=== PATIENT | female | born 1930 | race Caucasian/White ===

== ENCOUNTER 2016-12-10 20:34 | Inpatient (IN) | payer MEDICARE, MEDICAID ==
[2016-12-10 21:43] LABS: Hematocrit 30 % (35-47); Hemoglobin 9.6 g/dl (12.0-16.0); Mean Corpuscular HGB Conc 32 g/dl (31-36); Mean Corpuscular Hemoglobin 29 pg (27-31); Mean Corpuscular Volume 90 fL (80-97); Mean Platelet Volume 7 um3 (7.4-10.4); Red Blood Count 3.35 10^6/ul (4.0-5.4); Red Cell Distribution Width 16 % (10.5-15); White Blood Count 6.5 10^3/ul (3.5-10.8)
--- NOTE | 2016-12-10 21:47 | RAD ---
Indication: Confusion. CT of the brain was performed without IV contrast. Comparison is made with previous exam dated December 12, 2014. Ventricular structures are midline. No midline shift is noted. Central and cortical atrophy is noted. There is no evidence of intracranial mass or hemorrhage. No other high or low density lesion is identified. There is enlargement of the lateral ventricles bilaterally and symmetrically. This has not changed since previous exam. Periventricular lucency consistent with chronic ischemic white matter changes noted. Mucous retention cyst is noted in the left maxillary sinus. IMPRESSION: There is no evidence of intracranial mass or hemorrhage. Ventriculomegaly with chronic ischemic White matter change is noted.
--- NOTE | 2016-12-10 21:55 | RAD ---
Indication: Confusion. Single view of the chest demonstrates no mediastinal shift. Cardiomegaly is noted. Lung davidson are clear. Compared to previous exam of January 05, 2016 no significant change is noted. IMPRESSION: CARDIOMEGALY. NO ACTIVE CARDIOPULMONARY DISEASE IS NOTED.
[2016-12-10 22:11] LABS: Albumin 3.2 g/dL (3.2-5.2); BUN/Creatinine Ratio 19.6 (8-20); Calcium 9.9 mg/dL (8.6-10.3); EGFR African American 70.4 (>60); EGFR Non-African American 54.7 (>60); Globulin 4.1 g/dL (2-4); Magnesium 2.1 mg/dL (1.9-2.7); Potassium 3.7 mmol/L (3.5-5.0); Total Bilirubin 0.2 mg/dL (0.2-1.0); Total Protein 7.3 g/dL (6.4-8.9)
[2016-12-10 22:12] LABS: Troponin I 0.07 ng/mL (<0.04); Urine Bacteria 1+ (Absent); Urine Bilirubin Negative (Negative); Urine Glucose Negative (Negative); Urine Nitrite Negative (Negative)
[2016-12-10 22:32] LABS: TSH (Thyroid Stimulating Horm) 2.68 mcIU/mL (0.34-5.60)
[2016-12-10] MEDS ORDERED: Labetalol IV* 5 MG/ML 20 ML VIAL IV PUSH ONE (23:00)
[2016-12-10] MEDS ORDERED: hydrALAZINE IV* 20 MG/ML VIAL IV ONE (23:14)
--- NOTE | 2016-12-10 23:38 | HP ---
H&P (Free Text) History and Physical: PCP: Solo Yanez DO Date/Time of Evaluation: 12/10/2015 7747 CC: altered mental status HPI: Mrs Jordan is an 86YO female resident of [facility] who is normally oriented x4, but was found today by [facility] staff to be slow to respond and confused. She is unable to participate in a history. Therefore this information is obtained from her son & the available medical record. There is no report of focal W/N/T, facial asymmetry, slurred speech, choking with eating/drinking, known injury/fall, chest pain, SOB, N/V, F/C/D, or other issues. Her son relates that she has frequent UTIs and often becomes confused like this with them. Mrs Jordan opens her eyes to voice and seems reliable for current status questions. She does report lower abdominal pain radiating to her back, but denies B/U/F of urine. Work up is notable for a UA with UTI which is likely the cause. However, her systolic pressures have been running >200 making hypertensive urgency a possibility as well. PMedHx cerebral palsy seizure disorder CVA HTN COPD depression bone on bone OA R hip GERD Allergies Morphine Allergy (Mild, Verified 01/04/16 22:28) Rash Iodine Allergy (Unknown, Verified 01/04/16 22:28) Unknown Reaction Details Cefuroxime [From Ceftin] Allergy (Verified 01/04/16 22:28) Rash Ciprofloxacin Allergy (Verified 01/04/16 22:28) Unknown Reaction Details contrast dye iv Allergy (Severe, Uncoded 01/04/16 22:28) anaphylactic per pt's son 20 yrs ago Ambulatory Orders amLODIPine TAB* [Norvasc TAB*] 7.5 mg PO DAILY 07/10/13 Acetaminophen TAB* [Tylenol TAB*] 650 mg PO Q4H PRN 12/12/14 Diazepam (Anticonvulsant) [Diazepam] 5 mg DE Q5D PRN 12/12/14 Polyethylene Glycol 3350* [Miralax*] 17 gm PO DAILY 12/12/14 Sennosides-Docusate Sodium [Senna/Docusate Sodium] 2 tab PO BID 12/12/14 lamoTRIgine TAB(*) [Lamictal TAB(*)] 250 mg PO QAM 12/12/14 Aspirin Low Dose CHEW TAB* [Aspirin Low Dose TAB*] 81 mg PO DAILY 01/22/15 Ascorbic Acid TAB* [Vitamin C TAB*] 500 mg PO DAILY 12/11/16 Cholecalciferol [Vitamin D3] 50,000 unit PO WEEKLY 12/11/16 Cranberry (Vaccinium Macrocarp [Cranberry] 425 mg PO DAILY 12/11/16 Ferrous Sulfate TAB* 325 mg PO DAILY 12/11/16 Furosemide TAB* [Lasix TAB*] 20 mg PO DAILY 12/11/16 Omeprazole CAP* [Prilosec CAP* 20 MG] 40 mg PO DAILY 12/11/16 Phenytoin CAP(*) [Dilantin CAP(*)] 300 mg PO BEDTIME 12/11/16 lamoTRIgine TAB(*) [LaMICtal TAB(*)] 500 mg PO BEDTIME 12/11/16 traMADol TAB* [Ultram*] 50 mg PO BID 12/11/16 PSurgHx R MOLINA SocHx: no tobacco, alcohol, or recreational drug HX; , resides at [facility]; DNR/I code status FamHx: reviewed, non-contributory ROS: as above, otherwise reviewed and all were negative Constitutional: NAD, normally developed, obese elderly white female vitals: Vital Signs Temp 36.8 C 12/10/16 20:43 Pulse 74 12/10/16 23:49 Resp 18 12/10/16 23:49 BP 191/57 12/10/16 23:49 Pulse Ox 98 12/10/16 23:49 Intake & Output 12/10/16 12/10/16 12/11/16 11:59 23:59 11:59 Weight 180 lb HEENM: atraumatic; sclera/conjunctiva: non-icteric/clear; hearing: clinically mildly decreased; oropharynx: clear, mucosa moist Neck: soft tissue: non-tender; thyroid: normal Pulmonary: clear to auscultation bilaterally, good aeration, no accessory muscle use CV: RR/RR, normal S1S2, no carotid bruit, no jugular venous distention, 2+ B DP/ PT, no edema Abdominal: soft, non-distended, mildly tender in lower abdomen worst in hypogastrum, no rebound/guarding/rigidity, normoactive bowel sounds, no hepatosplenomegaly or masses, no costovertebral angle tenderness Musculoskeletal: general: grossly intact; gait: non-ambulatory at baseline Integumental: stage 1-2 L>R gluteal decubiti, no drainage, malodor, induration; otherwise normal appearance and texture Psychiatric orientation: AA&O to PP, loosely to situation affect: fatigued mood: acquiescent eye contact: poor content: minimal, unreliable responses: slowed insight: poor Testing: Lab Results 12/10/16 12/10/16 12/10/16 Range/Units 21:20 21:20 21:20 WBC 6.5 (3.5-10.8) 10^3/ul RBC 3.35 L (4.0-5.4) 10^6/ul Hgb 9.6 L (12.0-16.0) g/dl Hct 30 L (35-47) % MCV 90 (80-97) fL MCH 29 (27-31) pg MCHC 32 (31-36) g/dl RDW 16 H (10.5-15) % Plt Count 267 (150-450) 10^3/ul MPV 7 L (7.4-10.4) um3 Neut % (Auto) 73.2 (38-83) % Lymph % (Auto) 12.8 L (25-47) % Bond % (Auto) 11.3 H (1-9) % Eos % (Auto) 2.0 (0-6) % Baso % (Auto) 0.7 (0-2) % Absolute Neuts (auto) 4.8 (1.5-7.7) 10^3/ul Absolute Lymphs (auto) 0.8 L (1.0-4.8) 10^3/ul Absolute Monos (auto) 0.7 (0-0.8) 10^3/ul Absolute Eos (auto) 0.1 (0-0.6) 10^3/ul Absolute Basos (auto) 0 (0-0.2) 10^3/ul Absolute Nucleated RBC 0 10^3/ul Nucleated RBC % 0 INR (Anticoag Therapy) 0.97 (0.89-1.11) Sodium (133-145) mmol/L Potassium (3.5-5.0) mmol/L Chloride (101-111) mmol/L Carbon Dioxide (22-32) mmol/L Anion Gap (2-11) mmol/L BUN (6-24) mg/dL Creatinine (0.51-0.95) mg/dL Est GFR ( Amer) (>60) Est GFR (Non-Af Amer) (>60) BUN/Creatinine Ratio (8-20) Glucose (70-100) mg/dL Lactic Acid (0.5-2.0) mmol/L Calcium (8.6-10.3) mg/dL Magnesium (1.9-2.7) mg/dL Total Bilirubin (0.2-1.0) mg/dL AST (13-39) U/L ALT (7-52) U/L Alkaline Phosphatase (34-104) U/L Troponin I (<0.04) ng/mL Total Protein (6.4-8.9) g/dL Albumin (3.2-5.2) g/dL Globulin (2-4) g/dL Albumin/Globulin Ratio (1-3) TSH (0.34-5.60) mcIU/mL Urine Color Yeimi Urine Appearance Cloudy Urine pH 7.0 (5-9) Ur Specific [place] 1.013 (1.010-1.030) Urine Protein 2+(100 mg/dl) H (Negative) Urine Ketones Negative (Negative) Urine Blood 1+ H (Negative) Urine Nitrate Negative (Negative) Urine Bilirubin Negative (Negative) Urine Urobilinogen Negative (Negative) Ur Leukocyte Esterase 3+ H (Negative) Urine WBC (Auto) 3+(>20/hpf) H (Absent) Urine RBC (Auto) 2+(6-10/hpf) H (Absent) Ur Squamous Epith Cells Present H (Absent) Urine Bacteria 1+ H (Absent) Urine Glucose Negative (Negative) 12/10/16 12/10/16 Range/Units 21:20 21:20 WBC (3.5-10.8) 10^3/ul RBC (4.0-5.4) 10^6/ul Hgb (12.0-16.0) g/dl Hct (35-47) % MCV (80-97) fL MCH (27-31) pg MCHC (31-36) g/dl RDW (10.5-15) % Plt Count (150-450) 10^3/ul MPV (7.4-10.4) um3 Neut % (Auto) (38-83) % Lymph % (Auto) (25-47) % Bond % (Auto) (1-9) % Eos % (Auto) (0-6) % Baso % (Auto) (0-2) % Absolute Neuts (auto) (1.5-7.7) 10^3/ul Absolute Lymphs (auto) (1.0-4.8) 10^3/ul Absolute Monos (auto) (0-0.8) 10^3/ul Absolute Eos (auto) (0-0.6) 10^3/ul Absolute Basos (auto) (0-0.2) 10^3/ul Absolute Nucleated RBC 10^3/ul Nucleated RBC % INR (Anticoag Therapy) (0.89-1.11) Sodium 136 (133-145) mmol/L Potassium 3.7 (3.5-5.0) mmol/L Chloride 104 (101-111) mmol/L Carbon Dioxide 26 (22-32) mmol/L Anion Gap 6 (2-11) mmol/L BUN 19 (6-24) mg/dL Creatinine 0.97 H (0.51-0.95) mg/dL Est GFR ( Amer) 70.4 (>60) Est GFR (Non-Af Amer) 54.7 (>60) BUN/Creatinine Ratio 19.6 (8-20) Glucose 133 H (70-100) mg/dL Lactic Acid 0.7 (0.5-2.0) mmol/L Calcium 9.9 (8.6-10.3) mg/dL Magnesium 2.1 (1.9-2.7) mg/dL Total Bilirubin 0.20 (0.2-1.0) mg/dL AST 10 L (13-39) U/L ALT 6 L (7-52) U/L Alkaline Phosphatase 141 H (34-104) U/L Troponin I 0.07 H* (<0.04) ng/mL Total Protein 7.3 (6.4-8.9) g/dL Albumin 3.2 (3.2-5.2) g/dL Globulin 4.1 H (2-4) g/dL Albumin/Globulin Ratio 0.8 L (1-3) TSH 2.68 (0.34-5.60) mcIU/mL Urine Color Urine Appearance Urine pH (5-9) Ur Specific [place] (1.010-1.030) Urine Protein (Negative) Urine Ketones (Negative) Urine Blood (Negative) Urine Nitrate (Negative) Urine Bilirubin (Negative) Urine Urobilinogen (Negative) Ur Leukocyte Esterase (Negative) Urine WBC (Auto) (Absent) Urine RBC (Auto) (Absent) Ur Squamous Epith Cells (Absent) Urine Bacteria (Absent) Urine Glucose (Negative) ECG, personally reviewed: NSR rate 68, ST depression in V4-6, I, & II similar to 01/2016 CXR, personally reviewed: IMPRESSION: CARDIOMEGALY. NO ACTIVE CARDIOPULMONARY DISEASE IS NOTED. CT brain WO, personally reviewed: IMPRESSION: There is no evidence of intracranial mass or hemorrhage. Ventriculomegaly with chronic ischemic White matter change is noted. Impression: 86F presenting with AMS likely 2nd UTI, doubt hypertensive urgency DIAGNOSIS & PLAN Primary UTI : piperacillin/tazobactam IV 2nd allergies to quinolones & cephalosporins, last urine CX shows good sensitivity to it : IVFs : blood & urine CXs : pain control : supportive care HTN, uncontrolled : IV hydralazine PRN : goal systolic ~180 : neurochecks AMS : suspect 2nd UTI, doubt hypertensive urgency : as above elevated troponin : baseline, no further work up Secondary seizure disorder : continue lamotrigine, & phenytoin : D/C tramadol as it is known to lower the seizure threshold HTN : continue amlodipine : IV hydralazine PRN : hold furosemide COPD : albuterol PRN GERD : continue omeprazole Admission Rational: observation for AMS, UTI, & uncontrolled HTN DVTp: SCDs & heparin SQ Code Status: DNR/I HCP: son
--- NOTE | 2016-12-10 23:46 | ED ---
Mary Trujillo Michael, scribed for Diana Robertson MD on 12/10/16 at 2109 . Altered Mental Status - HPI Summary HPI Summary: 86 y/o female was BIBA to the ED presenting as a level 5 caveat due to an AMS starting today. The pt was found at the [facility] less responsive and not verbalizing more than normal. She has an elevated blood pressure of 229/109. She has a hx of sz. - History Of Current Complaint Chief Complaint: EDSeizure Stated Complaint: AMS Time Seen by Provider: 12/10/16 20:38 Hx Obtained From: EMS, Medical Records Hx From Patient Unobtainable Due To: Altered Mental Status Onset/Duration: Still Present Timing: Constant Severity Initially: Moderate Severity Currently: Moderate Character: Responsiveness Associated Signs And Symptoms: Negative: Negative - elevated blood pressure. AMS. - Allergies/Home Medications Allergies/Adverse Reactions: Allergies Allergy/AdvReac Type Severity Reaction Status Date / Time Morphine Allergy Mild Rash Verified 01/04/16 22:28 Iodine Allergy Unknown Unknown Verified 01/04/16 22:28 Reaction Details Cefuroxime [From Ceftin] Allergy Rash Verified 01/04/16 22:28 Ciprofloxacin Allergy Unknown Verified 01/04/16 22:28 Reaction Details contrast dye iv Allergy Severe anaphylacti Uncoded 01/04/16 22:28 c PMH/Surg Hx/FS Hx/Imm Hx Endocrine/Hematology History: Reports: Hx Anemia Denies: Hx Anticoagulant Therapy, Hx Blood Disorders, Hx Blood Transfusions, Hx Bone Marrow Disease, Hx Diabetes, Hx Systemic Lupus Erythematosus, Hx Sickle Cell Disease, Hx Thyroid Disease, Hx Unexplained Bleeding, Other Endocrine/ Hematological Disorders Cardiovascular History: Reports: Hx Hypertension Denies: Hx Aneurysm, Hx Angina, Hx Angioplasty, Hx Auto Implanted Cardiovert Defib, Hx Cardiac Arrest, Hx Cardiomegaly, Hx Congenital Heart Disease, Hx Congestive Heart Failure, Hx Coronary Artery Disease, Hx Deep Vein Thrombosis, Hx Embolism, Hx Hypercholesterolemia, Hx Hypotension, Hx Pacemaker/ICD, Hx Peripheral Vascular Disease, Hx Rheumatic Fever, Hx Syncope, Hx Valvular Heart Disease, Other Cardiovascular Problems/Disorders Respiratory History: Reports: Hx Chronic Obstructive Pulmonary Disease (COPD) Denies: Hx Asthma, Hx Chronic Bronchitis, Hx Cystic Fibrosis, Hx Lung Cancer , Hx Pleural Effusion, Hx Pneumonia, Hx Pulmonary Edema, Hx Pulmonary Embolism, Hx Seasonal Allergies, Hx Sleep Apnea, Other Respiratory Problems/Disorders GI History: Reports: Hx Obstructive Bowel, Other GI Disorders - gastritis Denies: Hx Cirrhosis, Hx Crohn's Disease, Hx Diverticulosis, Hx Gall Bladder Disease, Hx Gastroesophageal Reflux Disease, Hx Gastrointestinal Bleed, Hx Hiatal Hernia, Hx Irritable Bowel, Hx Jaundice, Hx Ileostomy, Hx Pyloric Stenosis, Hx Ulcer History: Reports: Other Problems/Disorders - chr urine retention, [place] Denies: Hx Acute Renal Failure, Hx Benign Prostatic Hyperplasia, Hx Chronic Renal Failure, Hx Dialysis, Hx Kidney Infection, Hx Kidney Stones Musculoskeletal History: Reports: Hx Arthritis, Hx Back Problems - chr neck pain , Hx Osteoporosis, Other Musculoskeletal History - CEREBRAL PALSY Denies: Hx Bursitis, Hx Congenital Bone Abnormalities, Hx Fibromyalgia, Hx Gout, Hx Orthopedic Injury, Hx Scoliosis, Hx Tendonitis Sensory History: Reports: Hx Cataracts, Hx Contacts or Glasses, Hx Hearing Problem - [place] Denies: Hx Eye Injury, Hx Eye Prosthesis, Hx Glaucoma, Hx Legally Blind, Hx Macular Degeneration, Hx Vision Problem, Hx Deafness, Hx Hearing Aid, Other Sensory Impairments Opthamlomology History: Reports: Hx Cataracts, Hx Contacts or Glasses Denies: Hx Eye Injury, Hx Eye Prosthesis, Hx Glaucoma, Hx Legally Blind, Hx Macular Degeneration, Hx Vision Problem, Other Sensory Impairments Neurological History: Reports: Hx Seizures, Other Neuro Impairments/Disorders - CEREBAL PALSY WITH LEFT HEMIPLEGIA Denies: Hx Dementia, Hx Developmental Delay, Hx Headaches, Hx Migraine, Hx Nerve Disease, Hx Spinal Cord Injury, Hx Transient Ischemic Attacks (TIA) Psychiatric History: Reports: Hx Depression Denies: Hx Anxiety, Hx Attention Deficit Hyperactivity Disorder, Hx Eating Disorder, Hx Panic Disorder, Hx Post Traumatic Stress Disorder, Hx Inpatient Treatment, Hx Community Mental Health Tx, Hx Schizophrenia, Hx Bipolar Disorder , Hx Suicide Attempt, Hx of Violent Episodes Against Others, Hx Substance Abuse , Other Psychiatric Issues/Disorders - Cancer History Hx Chemotherapy: No Hx Radiation Therapy: No Hx Palliative Cancer Treatment: No - Surgical History Surgery Procedure, Year, and Place: X2 FOR SBO, COLON RESECTION, left hip hemiarthroplasty, eyes, knee surgery as a child Hx Anesthesia Reactions: No Infectious Disease History: No Infectious Disease History: Denies: Hx Clostridium Difficile, Hx Hepatitis, Hx Human Immunodeficiency Virus (HIV), Hx Shingles, Hx Tuberculosis, Traveled Outside the [place] in Last 30 Days - Family History Known Family History: Positive: Unknown Family History: unknown due to level 5 caveat - Social History Occupation: Retired Lives: [facility] Alcohol Use: None Substance Use Type: Reports: None Smoking Status (MU): Never Smoked Tobacco Have You Smoked in the Last Year: No Review of Systems - ROS Summary Review of Systems Summary: Limited due to level 5 caveat Negative: Fever Positive: Other - incrased blood pressure Neurological: Other - AMS All Other Systems Reviewed And Are Negative: No Physical Exam - Summary Physical Exam Summary: Level 5 caveat Triage Information Reviewed: Yes Vital Signs On Initial Exam: Initial Vitals Temp Pulse Resp BP Pulse Ox 98.2 F 67 18 229/109 97 12/10/16 20:43 12/10/16 20:43 12/10/16 20:43 12/10/16 20:43 12/10/16 20:43 Vital Signs Reviewed: Yes Appearance: Positive: Well-Appearing, No Pain Distress Skin: Positive: Warm, Skin Color Reflects Adequate Perfusion, Dry Eyes: Positive: EOMI, JESUS Neck: Positive: Supple, Nontender Respiratory/Lung Sounds: Positive: Clear to Auscultation, Breath Sounds Present. Negative: Rales, Rhonchi, Wheezes Cardiovascular: Positive: RRR, Other - no gallop. Negative: Murmur, Rub Abdomen Description: Positive: Nontender, Soft, Other: - no rebound. Negative: Distended, Guarding Musculoskeletal: Positive: Other - feet are atrophied. LUE contracted. moves right arm. Neurological: Positive: Other - occasionally follows commands Psychiatric: Positive: Affect/Mood Appropriate Diagnostics - Vital Signs Vital Signs Temp Pulse Resp BP Pulse Ox 12/10/16 20:43 98.2 F 67 18 229/109 97 - Laboratory Lab Results: Lab Results 12/10/16 12/10/16 12/10/16 Range/Units 21:20 21:20 21:20 WBC 6.5 (3.5-10.8) 10^3/ul RBC 3.35 L (4.0-5.4) 10^6/ul Hgb 9.6 L (12.0-16.0) g/dl Hct 30 L (35-47) % MCV 90 (80-97) fL MCH 29 (27-31) pg MCHC 32 (31-36) g/dl RDW 16 H (10.5-15) % Plt Count 267 (150-450) 10^3/ul MPV 7 L (7.4-10.4) um3 Neut % (Auto) 73.2 (38-83) % Lymph % (Auto) 12.8 L (25-47) % Lares % (Auto) 11.3 H (1-9) % Eos % (Auto) 2.0 (0-6) % Baso % (Auto) 0.7 (0-2) % Absolute Neuts (auto) 4.8 (1.5-7.7) 10^3/ul Absolute Lymphs (auto) 0.8 L (1.0-4.8) 10^3/ul Absolute Monos (auto) 0.7 (0-0.8) 10^3/ul Absolute Eos (auto) 0.1 (0-0.6) 10^3/ul Absolute Basos (auto) 0 (0-0.2) 10^3/ul Absolute Nucleated RBC 0 10^3/ul Nucleated RBC % 0 INR (Anticoag Therapy) 0.97 (0.89-1.11) Sodium (133-145) mmol/L Potassium (3.5-5.0) mmol/L Chloride (101-111) mmol/L Carbon Dioxide (22-32) mmol/L Anion Gap (2-11) mmol/L BUN (6-24) mg/dL Creatinine (0.51-0.95) mg/dL Est GFR ( Amer) (>60) Est GFR (Non-Af Amer) (>60) BUN/Creatinine Ratio (8-20) Glucose (70-100) mg/dL Lactic Acid (0.5-2.0) mmol/L Calcium (8.6-10.3) mg/dL Magnesium (1.9-2.7) mg/dL Total Bilirubin (0.2-1.0) mg/dL AST (13-39) U/L ALT (7-52) U/L Alkaline Phosphatase (34-104) U/L Troponin I (<0.04) ng/mL Total Protein (6.4-8.9) g/dL Albumin (3.2-5.2) g/dL Globulin (2-4) g/dL Albumin/Globulin Ratio (1-3) TSH (0.34-5.60) mcIU/mL Urine Color Yeimi Urine Appearance Cloudy Urine pH 7.0 (5-9) Ur Specific [place] 1.013 (1.010-1.030) Urine Protein 2+(100 mg/dl) H (Negative) Urine Ketones Negative (Negative) Urine Blood 1+ H (Negative) Urine Nitrate Negative (Negative) Urine Bilirubin Negative (Negative) Urine Urobilinogen Negative (Negative) Ur Leukocyte Esterase 3+ H (Negative) Urine WBC (Auto) 3+(>20/hpf) H (Absent) Urine RBC (Auto) 2+(6-10/hpf) H (Absent) Ur Squamous Epith Cells Present H (Absent) Urine Bacteria 1+ H (Absent) Urine Glucose Negative (Negative) 12/10/16 12/10/16 Range/Units 21:20 21:20 WBC (3.5-10.8) 10^3/ul RBC (4.0-5.4) 10^6/ul Hgb (12.0-16.0) g/dl Hct (35-47) % MCV (80-97) fL MCH (27-31) pg MCHC (31-36) g/dl RDW (10.5-15) % Plt Count (150-450) 10^3/ul MPV (7.4-10.4) um3 Neut % (Auto) (38-83) % Lymph % (Auto) (25-47) % Lares % (Auto) (1-9) % Eos % (Auto) (0-6) % Baso % (Auto) (0-2) % Absolute Neuts (auto) (1.5-7.7) 10^3/ul Absolute Lymphs (auto) (1.0-4.8) 10^3/ul Absolute Monos (auto) (0-0.8) 10^3/ul Absolute Eos (auto) (0-0.6) 10^3/ul Absolute Basos (auto) (0-0.2) 10^3/ul Absolute Nucleated RBC 10^3/ul Nucleated RBC % INR (Anticoag Therapy) (0.89-1.11) Sodium 136 (133-145) mmol/L Potassium 3.7 (3.5-5.0) mmol/L Chloride 104 (101-111) mmol/L Carbon Dioxide 26 (22-32) mmol/L Anion Gap 6 (2-11) mmol/L BUN 19 (6-24) mg/dL Creatinine 0.97 H (0.51-0.95) mg/dL Est GFR ( Amer) 70.4 (>60) Est GFR (Non-Af Amer) 54.7 (>60) BUN/Creatinine Ratio 19.6 (8-20) Glucose 133 H (70-100) mg/dL Lactic Acid 0.7 (0.5-2.0) mmol/L Calcium 9.9 (8.6-10.3) mg/dL Magnesium 2.1 (1.9-2.7) mg/dL Total Bilirubin 0.20 (0.2-1.0) mg/dL AST 10 L (13-39) U/L ALT 6 L (7-52) U/L Alkaline Phosphatase 141 H (34-104) U/L Troponin I 0.07 H* (<0.04) ng/mL Total Protein 7.3 (6.4-8.9) g/dL Albumin 3.2 (3.2-5.2) g/dL Globulin 4.1 H (2-4) g/dL Albumin/Globulin Ratio 0.8 L (1-3) TSH 2.68 (0.34-5.60) mcIU/mL Urine Color Urine Appearance Urine pH (5-9) Ur Specific [place] (1.010-1.030) Urine Protein (Negative) Urine Ketones (Negative) Urine Blood (Negative) Urine Nitrate (Negative) Urine Bilirubin (Negative) Urine Urobilinogen (Negative) Ur Leukocyte Esterase (Negative) Urine WBC (Auto) (Absent) Urine RBC (Auto) (Absent) Ur Squamous Epith Cells (Absent) Urine Bacteria (Absent) Urine Glucose (Negative) Result Diagrams: 12/10/16 21:20 12/10/16 21:20 Lab Statement: Any lab studies that have been ordered have been reviewed, and results considered in the medical decision making process. - Radiology CXR Xray Interpretation: No Acute Changes Radiology Interpretation Completed By: Radiologist - CT Brain CT CT Interpretation: Positive (See Comments) - There is no evidence of intracranial mass or hemorrhage. Ventriculomegaly with chronic ischemic White matter change is noted. CT Interpretation Completed By: Radiologist - EKG EK EKG Rhythm: Sinus Rhythm EKG Interpretation: LVH with repol EKG Comparison: No Significant Change - to EKG from 01/04/16 Altered Mental Statu Course/Dx - Course Course Of Treatment: 86 y/o pt was BIBA to the ED for AMS and is a level 5 caveat. She has a Trop of 0.07, nml CXR, and Brain CT showed actue white matter changes. After reevaluation the pt is slightly more alert, she has poor urine, and bed sores on her buttocks. Dr. Schulz was consulted at 2257 and he accepts the pt as an admission. possible causes of her ams are hypertensive urgency, uti, post ictal confusion - Diagnoses Discharge Diagnoses: UTI (urinary tract infection), Hypertension, Altered mental state Discharge - Discharge Plan Condition: Stable Disposition: HOME Discharge Disposition Comment: Dr. Schulz accepts the pt as an admission Referrals: Abilio Yanez DO, DO [Primary Care Provider] - The documentation as recorded by the Mary boyle Michael accurately reflects the service I personally performed and the decisions made by me, Diana Robertson MD.
[2016-12-11] MEDS ORDERED: HYDROmorphone INJ* 1 MG/ML CARPUJECT SYRINGE ONE (00:44)
[2016-12-11] MEDS: HYDROmorphone INJ* 1 MG/ML CARPUJECT SYRINGE IV PRN ×5 (00:46→21:54)
[2016-12-11] MEDS ORDERED: Melatonin (NF) 3 MG TAB PO PRN (01:08)
[2016-12-11] MEDS ORDERED: Ondansetron INJ* 2 MG/ML VIAL IV PRN (01:08)
[2016-12-11] MEDS ORDERED: Albuterol 2.5 MG/3 ML NEB.SOL* (0.083%) INH PRN (01:08)
[2016-12-11] MEDS ORDERED: NS 0.9% 1000 ML* 1,000 ML IV SCH (01:15)
[2016-12-11] MEDS ORDERED: Piperac/Tazob 3.375 gm in NS* 3.375 GM/100 ML BAG IVPB ONE (01:30)
[2016-12-11] MEDS: Omeprazole CAP* 20 MG PO SCH (05:25)
[2016-12-11] MEDS: Piperac/Tazob 3.375 gm in NS* 3.375 GM/100 ML BAG IVPB SCH ×3 (05:27→21:56)
[2016-12-11 06:33] LABS: Hematocrit 30 % (35-47); Hemoglobin 9.3 g/dl (12.0-16.0); Mean Corpuscular HGB Conc 31 g/dl (31-36); Mean Corpuscular Hemoglobin 28 pg (27-31); Mean Corpuscular Volume 91 fL (80-97); Mean Platelet Volume 7 um3 (7.4-10.4); Red Blood Count 3.26 10^6/ul (4.0-5.4); Red Cell Distribution Width 16 % (10.5-15)
[2016-12-11 07:04] LABS: BUN/Creatinine Ratio 24.3 (8-20); Blood Urea Nitrogen 18 mg/dL (6-24); CO2 Carbon Dioxide 22 mmol/L (22-32); Calcium 9.1 mg/dL (8.6-10.3); Chloride 105 mmol/L (101-111); EGFR African American 96.2 (>60); EGFR Non-African American 74.8 (>60); Glucose 100 mg/dL (70-100); Sodium 136 mmol/L (133-145)
[2016-12-11] MEDS: Polyethylene Glycol 3350* 17 GM PACKET PO SCH (07:42)
[2016-12-11] MEDS: Senna TAB PO SCH ×2 (07:42→21:44)
[2016-12-11] MEDS: amLODIPine TAB* 5 MG PO SCH (07:55)
[2016-12-11] MEDS: Aspirin Low Dose CHEW TAB* 81 MG PO SCH (07:55)
[2016-12-11] MEDS: Acetaminophen TAB* 325 MG PO PRN ×2 (07:56→14:32)
[2016-12-11] MEDS: lamoTRIgine TAB(*) 100 MG PO SCH (07:56)
[2016-12-11] MEDS ORDERED: Docusate CAP* 100 MG PO SCH ×2 (09:00)
--- NOTE | 2016-12-11 16:18 | PN ---
Subjective Date of Service: 12/11/16 Interval History: Pt is feeling ok except for severe pain in her left hip and femur. She denies any SOB. Objective Active Medications: Acetaminophen (Tylenol Tab*) 650 mg PO Q6H PRN PRN Reason: FEVER/PAIN Last Admin: 12/11/16 14:32 Dose: 650 mg Albuterol (Ventolin 2.5 Mg/3 Ml Neb.María*) 2.5 mg INH Q2H PRN PRN Reason: SOB/WHEEZING Amlodipine Besylate (Norvasc Tab*) 7.5 mg PO DAILY [facility] Last Admin: 12/11/16 07:55 Dose: 7.5 mg Aspirin (Aspirin Low Dose Tab*) 81 mg PO DAILY [facility] Last Admin: 12/11/16 07:55 Dose: 81 mg Heparin Sodium (Porcine) (Heparin Vial(*)) 5,000 units SUBCUT Q8HR [facility] Hydromorphone HCl (Dilaudid Iv*) 0.5 mg IV Q2H PRN PRN Reason: PAIN Last Admin: 12/11/16 07:55 Dose: 0.5 mg Piperacillin Sod/Tazobactam Sod (Zosyn 3.375 Gm In Ns Premix*) 3.375 gm in 100 mls @ 25 mls/hr IVPB Q8H [facility] Last Admin: 12/11/16 14:32 Dose: 25 mls/hr Lamotrigine (Lamictal Tab(*)) 250 mg PO QAM [facility] Last Admin: 12/11/16 07:56 Dose: 250 mg Lamotrigine (Lamictal Tab(*)) 500 mg PO BEDTIME [facility] Losartan Potassium (Cozaar Tab*) 25 mg PO DAILY [facility] Omeprazole (Prilosec Cap*) 20 mg PO DAILY@0600 [facility] Last Admin: 12/11/16 05:25 Dose: 20 mg Ondansetron HCl (Zofran Inj*) 4 mg IV Q6H PRN PRN Reason: NAUSEA Phenytoin Sodium (Dilantin Cap(*)) 300 mg PO BEDTIME [facility] Polyethylene Glycol/Electrolytes (Miralax*) 17 gm PO DAILY [facility] Last Admin: 12/11/16 07:42 Dose: Not Given Senna (Senokot Tab*) 2 tab PO BID [facility] Last Admin: 12/11/16 07:42 Dose: Not Given Vital Signs 12/10/16 12/11/16 12/11/16 23:49 00:46 01:51 Temperature 99.4 F Pulse Rate 74 67 Respiratory 18 18 16 Rate Blood Pressure 191/57 184/50 (mmHg) O2 Sat by Pulse 98 97 Oximetry 12/11/16 12/11/16 12/11/16 02:31 03:49 07:25 Temperature 99.4 F 97.5 F 97.9 F Pulse Rate 67 73 67 Respiratory 16 16 16 Rate Blood Pressure 184/50 179/54 188/47 (mmHg) O2 Sat by Pulse 97 98 98 Oximetry 12/11/16 12/11/16 12/11/16 07:55 08:00 08:55 Temperature Pulse Rate Respiratory 20 15 15 Rate Blood Pressure (mmHg) O2 Sat by Pulse Oximetry 12/11/16 12/11/16 12/11/16 09:17 09:46 11:40 Temperature 97.9 F Pulse Rate 63 60 Respiratory 15 18 Rate Blood Pressure 126/29 158/50 (mmHg) O2 Sat by Pulse 94 98 Oximetry 12/11/16 12/11/16 14:55 15:54 Temperature 98.4 F Pulse Rate 64 Respiratory 15 17 Rate Blood Pressure 186/53 (mmHg) O2 Sat by Pulse 99 Oximetry Oxygen Devices in Use Now: None Appearance: Elderly female sitting up in bed, NAD Eyes: No Scleral Icterus Ears/Nose/Mouth/Throat: Mucous Membranes Moist Respiratory: Symmetrical Chest Expansion and Respiratory Effort, Clear to Auscultation Cardiovascular: NL Sounds; No Murmurs; No JVD, RRR, No Edema Abdominal: NL Sounds; No Tenderness; No Distention Extremities: No Clubbing, Cyanosis Skin: No Rash or Ulcers, No Nodules or Sclerosis Neurological: - - Oriented to month, hospital and where she lives. Did not know the year. Result Diagrams: 12/11/16 05:43 12/11/16 05:43 Additional Lab and Data: Lab Results 12/10/16 12/10/16 12/10/16 Range/Units 21:20 21:20 21:20 WBC 6.5 (3.5-10.8) 10^3/ul RBC 3.35 L (4.0-5.4) 10^6/ul Hgb 9.6 L (12.0-16.0) g/dl Hct 30 L (35-47) % MCV 90 (80-97) fL MCH 29 (27-31) pg MCHC 32 (31-36) g/dl RDW 16 H (10.5-15) % Plt Count 267 (150-450) 10^3/ul MPV 7 L (7.4-10.4) um3 Neut % (Auto) 73.2 (38-83) % Lymph % (Auto) 12.8 L (25-47) % Lane % (Auto) 11.3 H (1-9) % Eos % (Auto) 2.0 (0-6) % Baso % (Auto) 0.7 (0-2) % Absolute Neuts (auto) 4.8 (1.5-7.7) 10^3/ul Absolute Lymphs (auto) 0.8 L (1.0-4.8) 10^3/ul Absolute Monos (auto) 0.7 (0-0.8) 10^3/ul Absolute Eos (auto) 0.1 (0-0.6) 10^3/ul Absolute Basos (auto) 0 (0-0.2) 10^3/ul Absolute Nucleated RBC 0 10^3/ul Nucleated RBC % 0 INR (Anticoag Therapy) 0.97 (0.89-1.11) Sodium (133-145) mmol/L Potassium (3.5-5.0) mmol/L Chloride (101-111) mmol/L Carbon Dioxide (22-32) mmol/L Anion Gap (2-11) mmol/L BUN (6-24) mg/dL Creatinine (0.51-0.95) mg/dL Est GFR ( Amer) (>60) Est GFR (Non-Af Amer) (>60) BUN/Creatinine Ratio (8-20) Glucose (70-100) mg/dL Lactic Acid (0.5-2.0) mmol/L Calcium (8.6-10.3) mg/dL Magnesium (1.9-2.7) mg/dL Total Bilirubin (0.2-1.0) mg/dL AST (13-39) U/L ALT (7-52) U/L Alkaline Phosphatase (34-104) U/L Troponin I (<0.04) ng/mL Total Protein (6.4-8.9) g/dL Albumin (3.2-5.2) g/dL Globulin (2-4) g/dL Albumin/Globulin Ratio (1-3) TSH (0.34-5.60) mcIU/mL Urine Color Yeimi Urine Appearance Cloudy Urine pH 7.0 (5-9) Ur Specific [place] 1.013 (1.010-1.030) Urine Protein 2+(100 mg/dl) H (Negative) Urine Ketones Negative (Negative) Urine Blood 1+ H (Negative) Urine Nitrate Negative (Negative) Urine Bilirubin Negative (Negative) Urine Urobilinogen Negative (Negative) Ur Leukocyte Esterase 3+ H (Negative) Urine WBC (Auto) 3+(>20/hpf) H (Absent) Urine RBC (Auto) 2+(6-10/hpf) H (Absent) Ur Squamous Epith Cells Present H (Absent) Urine Bacteria 1+ H (Absent) Urine Glucose Negative (Negative) 12/10/16 12/10/16 Range/Units 21:20 21:20 WBC (3.5-10.8) 10^3/ul RBC (4.0-5.4) 10^6/ul Hgb (12.0-16.0) g/dl Hct (35-47) % MCV (80-97) fL MCH (27-31) pg MCHC (31-36) g/dl RDW (10.5-15) % Plt Count (150-450) 10^3/ul MPV (7.4-10.4) um3 Neut % (Auto) (38-83) % Lymph % (Auto) (25-47) % Lane % (Auto) (1-9) % Eos % (Auto) (0-6) % Baso % (Auto) (0-2) % Absolute Neuts (auto) (1.5-7.7) 10^3/ul Absolute Lymphs (auto) (1.0-4.8) 10^3/ul Absolute Monos (auto) (0-0.8) 10^3/ul Absolute Eos (auto) (0-0.6) 10^3/ul Absolute Basos (auto) (0-0.2) 10^3/ul Absolute Nucleated RBC 10^3/ul Nucleated RBC % INR (Anticoag Therapy) (0.89-1.11) Sodium 136 (133-145) mmol/L Potassium 3.7 (3.5-5.0) mmol/L Chloride 104 (101-111) mmol/L Carbon Dioxide 26 (22-32) mmol/L Anion Gap 6 (2-11) mmol/L BUN 19 (6-24) mg/dL Creatinine 0.97 H (0.51-0.95) mg/dL Est GFR ( Amer) 70.4 (>60) Est GFR (Non-Af Amer) 54.7 (>60) BUN/Creatinine Ratio 19.6 (8-20) Glucose 133 H (70-100) mg/dL Lactic Acid 0.7 (0.5-2.0) mmol/L Calcium 9.9 (8.6-10.3) mg/dL Magnesium 2.1 (1.9-2.7) mg/dL Total Bilirubin 0.20 (0.2-1.0) mg/dL AST 10 L (13-39) U/L ALT 6 L (7-52) U/L Alkaline Phosphatase 141 H (34-104) U/L Troponin I 0.07 H* (<0.04) ng/mL Total Protein 7.3 (6.4-8.9) g/dL Albumin 3.2 (3.2-5.2) g/dL Globulin 4.1 H (2-4) g/dL Albumin/Globulin Ratio 0.8 L (1-3) TSH 2.68 (0.34-5.60) mcIU/mL Urine Color Urine Appearance Urine pH (5-9) Ur Specific [place] (1.010-1.030) Urine Protein (Negative) Urine Ketones (Negative) Urine Blood (Negative) Urine Nitrate (Negative) Urine Bilirubin (Negative) Urine Urobilinogen (Negative) Ur Leukocyte Esterase (Negative) Urine WBC (Auto) (Absent) Urine RBC (Auto) (Absent) Ur Squamous Epith Cells (Absent) Urine Bacteria (Absent) Urine Glucose (Negative) Microbiology and Other Data: Microbiology 12/11/16 01:51 Nasal Screen MRSA (PCR)(JENNIFER) - Final Nasal Mrsa Positive Assess/Plan/Problems-Billing Ms Jordan is an 86 yo F who has a h/o seizure disorder, HTN, CVA, COPD, depression and GERD who presented to the ER with c/o altered mental status and was admitted for possible UTI. - Patient Problems (1) Left hip pain Current Visit: Yes Status: Acute Code(s): M25.552 - PAIN IN LEFT HIP SNOMED Code(s): 38937511 Comment: Biggest complaint today is L hip pain. Will get Xrays-this is painful to touch but not too bad to internal/external rotation. Continue pain control. (2) UTI (lower urinary tract infection) Current Visit: Yes Status: Acute Onset Date: 02/27/15 Code(s): N39.0 - URINARY TRACT INFECTION, SITE NOT SPECIFIED SNOMED Code(s): 3267100 Comment: Urine culture is pending. It is suspected that her AMS on admission is secondary to UTI. Continue zosyn for now. Previous cultures have been sensitive to this. (3) Elevated troponin Current Visit: Yes Status: Acute Code(s): R79.89 - OTHER SPECIFIED ABNORMAL FINDINGS OF BLOOD CHEMISTRY SNOMED Code(s): 202977460 Comment: Follow up level pending. She denies chest pain. Will await follow up result. Consider further testing depending on the result. (4) Anemia Current Visit: Yes Status: Acute Code(s): D64.9 - ANEMIA, UNSPECIFIED SNOMED Code(s): 410679006 Comment: This is chronic and her H/H is close to baseline. Continue to follow. (5) COPD (chronic obstructive pulmonary disease) Current Visit: Yes Status: Chronic Code(s): J44.9 - CHRONIC OBSTRUCTIVE PULMONARY DISEASE, UNSPECIFIED SNOMED Code(s): 84345310 Comment: No signs of exacerbation. She is not on any bronchodilators at [facility]. Will monitor. (6) HTN (hypertension) Current Visit: Yes Status: Chronic Code(s): I10 - ESSENTIAL (PRIMARY) HYPERTENSION SNOMED Code(s): 96516824 Comment: BP has been markedly elevated. Start losartan in addition to amlodipine. Continue to monitor BP. (7) Seizure disorder Current Visit: Yes Status: Chronic Code(s): G40.909 - EPILEPSY, UNSP, NOT INTRACTABLE, WITHOUT STATUS EPILEPTICUS SNOMED Code(s): 052121430 Comment: Continue phenytoin and lamictal. Check phenytoin level tomorrow. (8) DVT prophylaxis Current Visit: Yes Status: Acute Code(s): LID4952 - SNOMED Code(s): 760629555 Comment: SQ heparin (9) DNR (do not resuscitate) Current Visit: Yes Status: Acute
[2016-12-11] MEDS: Losartan TAB* 25 MG PO SCH (17:09)
[2016-12-11] MEDS: hydrALAZINE IV* 20 MG/ML VIAL IV SLOW PU PRN (17:59)
--- NOTE | 2016-12-11 20:52 | RAD ---
Indication: Left hip and thigh pain Comparison: CT abdomen pelvis dated January 06, 2016 Technique: A total of 11 radiographs of the left hip and femur were obtained. Report: Advanced degenerative changes of the left hip include sclerotic change of the articulating surfaces and exuberant marginal osteophyte formation. On some views of the hip there appears to be a lucent line overlying the femoral neck but this is suspected to be an overlying skinfold or other external object as this appearance is not reproduced on other views of the hip. The femoral shaft appears to be intact. There are advanced degenerative changes of the right knee including near complete obliteration of the joint space and sclerotic change of the articulating surfaces. IMPRESSION: 1. Questionable nondisplaced fracture through the left femoral neck that is not reproduced on all images of the hip. 2. Advanced degenerative changes of the left hip and knee as described above.
[2016-12-11] MEDS ORDERED: Phenytoin CAP(*) 100 MG CAP.ER PO SCH (21:00)
[2016-12-11] MEDS ORDERED: lamoTRIgine TAB(*) 100 MG PO SCH (21:00)
[2016-12-12] MEDS: Omeprazole CAP* 20 MG PO SCH (05:39)
[2016-12-12] MEDS: Heparin VIAL(*) 5000 UNITS/ML VIAL (FIVE THOUSAND) SUBCUT SCH ×2 (05:39→13:44)
[2016-12-12] MEDS: hydrALAZINE IV* 20 MG/ML VIAL IV SLOW PU PRN (05:39)
[2016-12-12] MEDS: Piperac/Tazob 3.375 gm in NS* 3.375 GM/100 ML BAG IVPB SCH ×2 (05:51→13:44)
[2016-12-12] MEDS: amLODIPine TAB* 5 MG PO SCH (09:05)
[2016-12-12] MEDS: Acetaminophen TAB* 325 MG PO PRN (09:05)
[2016-12-12] MEDS: lamoTRIgine TAB(*) 100 MG PO SCH (09:06)
[2016-12-12] MEDS: Losartan TAB* 25 MG PO SCH (09:07)
[2016-12-12] MEDS: Aspirin Low Dose CHEW TAB* 81 MG PO SCH (09:07)
[2016-12-12] MEDS: Polyethylene Glycol 3350* 17 GM PACKET PO SCH (09:08)
[2016-12-12] MEDS: Senna TAB PO SCH (09:08)
[2016-12-12] MEDS ORDERED: Losartan TAB* 25 MG PO ONE (09:19)
--- NOTE | 2016-12-12 09:27 | PN ---
Subjective Date of Service: 12/12/16 Interval History: Pt is feeling ok. She still has L hip pain though not as bad today as it has been. She states she does not walk at baseline. She denies any SOB. Objective Active Medications: Acetaminophen (Tylenol Tab*) 650 mg PO Q6H PRN PRN Reason: FEVER/PAIN Last Admin: 12/12/16 09:05 Dose: 650 mg Albuterol (Ventolin 2.5 Mg/3 Ml Neb.María*) 2.5 mg INH Q2H PRN PRN Reason: SOB/WHEEZING Amlodipine Besylate (Norvasc Tab*) 7.5 mg PO DAILY [facility] Last Admin: 12/12/16 09:05 Dose: 7.5 mg Aspirin (Aspirin Low Dose Tab*) 81 mg PO DAILY [facility] Last Admin: 12/12/16 09:07 Dose: 81 mg Heparin Sodium (Porcine) (Heparin Vial(*)) 5,000 units SUBCUT Q8HR [facility] Last Admin: 12/12/16 05:39 Dose: 5,000 units Hydralazine HCl (Apresoline Iv*) 10 mg IV SLOW PU Q6H PRN PRN Reason: SBP>180 Last Admin: 12/12/16 05:39 Dose: 10 mg Hydromorphone HCl (Dilaudid Iv*) 0.5 mg IV Q2H PRN PRN Reason: PAIN Last Admin: 12/11/16 21:54 Dose: 0.5 mg Piperacillin Sod/Tazobactam Sod (Zosyn 3.375 Gm In Ns Premix*) 3.375 gm in 100 mls @ 25 mls/hr IVPB Q8H [facility] Last Admin: 12/12/16 05:51 Dose: 25 mls/hr Lamotrigine (Lamictal Tab(*)) 250 mg PO QAM [facility] Last Admin: 12/12/16 09:06 Dose: 250 mg Lamotrigine (Lamictal Tab(*)) 500 mg PO BEDTIME [facility] Last Admin: 12/11/16 21:51 Dose: 500 mg Losartan Potassium (Cozaar Tab*) 25 mg PO ONCE ONE Stop: 12/12/16 09:20 Losartan Potassium (Cozaar Tab*) 50 mg PO DAILY [facility] Omeprazole (Prilosec Cap*) 20 mg PO DAILY@0600 [facility] Last Admin: 12/12/16 05:39 Dose: 20 mg Ondansetron HCl (Zofran Inj*) 4 mg IV Q6H PRN PRN Reason: NAUSEA Phenytoin Sodium (Dilantin Cap(*)) 300 mg PO BEDTIME [facility] Last Admin: 12/11/16 21:51 Dose: 300 mg Polyethylene Glycol/Electrolytes (Miralax*) 17 gm PO DAILY [facility] Last Admin: 12/12/16 09:08 Dose: 17 gm Senna (Senokot Tab*) 2 tab PO BID [facility] Last Admin: 12/12/16 09:08 Dose: 2 tab Vital Signs 12/11/16 12/11/16 12/11/16 17:11 17:38 19:02 Temperature 97.9 F Pulse Rate 62 67 Respiratory 14 20 Rate Blood Pressure 192/52 166/35 (mmHg) O2 Sat by Pulse 98 Oximetry 12/11/16 12/11/16 12/11/16 19:10 20:00 20:10 Temperature Pulse Rate 67 Respiratory 18 16 18 Rate Blood Pressure (mmHg) O2 Sat by Pulse 98 Oximetry 12/11/16 12/11/16 12/11/16 21:54 22:54 23:45 Temperature 98.2 F Pulse Rate 65 Respiratory 18 16 19 Rate Blood Pressure 194/55 (mmHg) O2 Sat by Pulse 99 Oximetry 12/12/16 12/12/16 12/12/16 00:00 04:11 06:10 Temperature 98.3 F Pulse Rate 58 59 Respiratory 19 16 Rate Blood Pressure 181/52 159/38 (mmHg) O2 Sat by Pulse 98 98 97 Oximetry 12/12/16 07:33 Temperature 97.6 F Pulse Rate 58 Respiratory 16 Rate Blood Pressure 154/39 (mmHg) O2 Sat by Pulse 97 Oximetry Oxygen Devices in Use Now: None Appearance: Elderly female sitting up in bed, NAD Eyes: No Scleral Icterus Ears/Nose/Mouth/Throat: Mucous Membranes Moist Respiratory: Symmetrical Chest Expansion and Respiratory Effort, Clear to Auscultation Cardiovascular: RRR, - - III/ systolic murmur heard best at the LUSB Abdominal: NL Sounds; No Tenderness; No Distention Extremities: No Clubbing, Cyanosis, - - L LE slightly shortened and externally rotated Skin: No Rash or Ulcers, No Nodules or Sclerosis Neurological: Alert and Oriented x 3 Result Diagrams: 12/11/16 05:43 12/11/16 05:43 Additional Lab and Data: Lab Results 12/10/16 12/10/16 12/10/16 Range/Units 21:20 21:20 21:20 WBC 6.5 (3.5-10.8) 10^3/ul RBC 3.35 L (4.0-5.4) 10^6/ul Hgb 9.6 L (12.0-16.0) g/dl Hct 30 L (35-47) % MCV 90 (80-97) fL MCH 29 (27-31) pg MCHC 32 (31-36) g/dl RDW 16 H (10.5-15) % Plt Count 267 (150-450) 10^3/ul MPV 7 L (7.4-10.4) um3 Neut % (Auto) 73.2 (38-83) % Lymph % (Auto) 12.8 L (25-47) % [place] % (Auto) 11.3 H (1-9) % Eos % (Auto) 2.0 (0-6) % Baso % (Auto) 0.7 (0-2) % Absolute Neuts (auto) 4.8 (1.5-7.7) 10^3/ul Absolute Lymphs (auto) 0.8 L (1.0-4.8) 10^3/ul Absolute Monos (auto) 0.7 (0-0.8) 10^3/ul Absolute Eos (auto) 0.1 (0-0.6) 10^3/ul Absolute Basos (auto) 0 (0-0.2) 10^3/ul Absolute Nucleated RBC 0 10^3/ul Nucleated RBC % 0 INR (Anticoag Therapy) 0.97 (0.89-1.11) Sodium (133-145) mmol/L Potassium (3.5-5.0) mmol/L Chloride (101-111) mmol/L Carbon Dioxide (22-32) mmol/L Anion Gap (2-11) mmol/L BUN (6-24) mg/dL Creatinine (0.51-0.95) mg/dL Est GFR ( Amer) (>60) Est GFR (Non-Af Amer) (>60) BUN/Creatinine Ratio (8-20) Glucose (70-100) mg/dL Lactic Acid (0.5-2.0) mmol/L Calcium (8.6-10.3) mg/dL Magnesium (1.9-2.7) mg/dL Total Bilirubin (0.2-1.0) mg/dL AST (13-39) U/L ALT (7-52) U/L Alkaline Phosphatase (34-104) U/L Troponin I (<0.04) ng/mL Total Protein (6.4-8.9) g/dL Albumin (3.2-5.2) g/dL Globulin (2-4) g/dL Albumin/Globulin Ratio (1-3) TSH (0.34-5.60) mcIU/mL Urine Color Yeimi Urine Appearance Cloudy Urine pH 7.0 (5-9) Ur Specific [place] 1.013 (1.010-1.030) Urine Protein 2+(100 mg/dl) H (Negative) Urine Ketones Negative (Negative) Urine Blood 1+ H (Negative) Urine Nitrate Negative (Negative) Urine Bilirubin Negative (Negative) Urine Urobilinogen Negative (Negative) Ur Leukocyte Esterase 3+ H (Negative) Urine WBC (Auto) 3+(>20/hpf) H (Absent) Urine RBC (Auto) 2+(6-10/hpf) H (Absent) Ur Squamous Epith Cells Present H (Absent) Urine Bacteria 1+ H (Absent) Urine Glucose Negative (Negative) 12/10/16 12/10/16 Range/Units 21:20 21:20 WBC (3.5-10.8) 10^3/ul RBC (4.0-5.4) 10^6/ul Hgb (12.0-16.0) g/dl Hct (35-47) % MCV (80-97) fL MCH (27-31) pg MCHC (31-36) g/dl RDW (10.5-15) % Plt Count (150-450) 10^3/ul MPV (7.4-10.4) um3 Neut % (Auto) (38-83) % Lymph % (Auto) (25-47) % [place] % (Auto) (1-9) % Eos % (Auto) (0-6) % Baso % (Auto) (0-2) % Absolute Neuts (auto) (1.5-7.7) 10^3/ul Absolute Lymphs (auto) (1.0-4.8) 10^3/ul Absolute Monos (auto) (0-0.8) 10^3/ul Absolute Eos (auto) (0-0.6) 10^3/ul Absolute Basos (auto) (0-0.2) 10^3/ul Absolute Nucleated RBC 10^3/ul Nucleated RBC % INR (Anticoag Therapy) (0.89-1.11) Sodium 136 (133-145) mmol/L Potassium 3.7 (3.5-5.0) mmol/L Chloride 104 (101-111) mmol/L Carbon Dioxide 26 (22-32) mmol/L Anion Gap 6 (2-11) mmol/L BUN 19 (6-24) mg/dL Creatinine 0.97 H (0.51-0.95) mg/dL Est GFR ( Amer) 70.4 (>60) Est GFR (Non-Af Amer) 54.7 (>60) BUN/Creatinine Ratio 19.6 (8-20) Glucose 133 H (70-100) mg/dL Lactic Acid 0.7 (0.5-2.0) mmol/L Calcium 9.9 (8.6-10.3) mg/dL Magnesium 2.1 (1.9-2.7) mg/dL Total Bilirubin 0.20 (0.2-1.0) mg/dL AST 10 L (13-39) U/L ALT 6 L (7-52) U/L Alkaline Phosphatase 141 H (34-104) U/L Troponin I 0.07 H* (<0.04) ng/mL Total Protein 7.3 (6.4-8.9) g/dL Albumin 3.2 (3.2-5.2) g/dL Globulin 4.1 H (2-4) g/dL Albumin/Globulin Ratio 0.8 L (1-3) TSH 2.68 (0.34-5.60) mcIU/mL Urine Color Urine Appearance Urine pH (5-9) Ur Specific [place] (1.010-1.030) Urine Protein (Negative) Urine Ketones (Negative) Urine Blood (Negative) Urine Nitrate (Negative) Urine Bilirubin (Negative) Urine Urobilinogen (Negative) Ur Leukocyte Esterase (Negative) Urine WBC (Auto) (Absent) Urine RBC (Auto) (Absent) Ur Squamous Epith Cells (Absent) Urine Bacteria (Absent) Urine Glucose (Negative) Microbiology and Other Data: Microbiology 12/11/16 01:51 Nasal Screen MRSA (PCR)(JENNIFER) - Final Nasal Mrsa Positive Assess/Plan/Problems-Billing Ms Jordan is an 86 yo F who has a h/o seizure disorder, HTN, CVA, COPD, depression and GERD who presented to the ER with c/o altered mental status and was admitted for possible UTI. - Patient Problems (1) Left hip pain Current Visit: Yes Status: Acute Code(s): M25.552 - PAIN IN LEFT HIP SNOMED Code(s): 54143819 Comment: Xrays question a fracture through the femoral neck. Will get CT to better eval for fracture. If positive will ask for orthopedics consult. (2) UTI (lower urinary tract infection) Current Visit: Yes Status: Acute Onset Date: 02/27/15 Code(s): N39.0 - URINARY TRACT INFECTION, SITE NOT SPECIFIED SNOMED Code(s): 2270998 Comment: Urine culture has not been reported yet. Will continue zosyn for now. AMS has resolved. (3) Elevated troponin Current Visit: Yes Status: Acute Code(s): R79.89 - OTHER SPECIFIED ABNORMAL FINDINGS OF BLOOD CHEMISTRY SNOMED Code(s): 454673160 Comment: Follow up troponin is stable at 0.06. No further testing recommended at this time. She has a chronically elevated troponin. (4) Anemia Current Visit: Yes Status: Acute Code(s): D64.9 - ANEMIA, UNSPECIFIED SNOMED Code(s): 889229724 Comment: H/H not reassessed today. Monitor intermittently. (5) COPD (chronic obstructive pulmonary disease) Current Visit: Yes Status: Chronic Code(s): J44.9 - CHRONIC OBSTRUCTIVE PULMONARY DISEASE, UNSPECIFIED SNOMED Code(s): 75775146 Comment: No signs of exacerbation. She is not on any bronchodilators at [facility]. Will monitor. (6) HTN (hypertension) Current Visit: Yes Status: Chronic Code(s): I10 - ESSENTIAL (PRIMARY) HYPERTENSION SNOMED Code(s): 28872939 Comment: BP remains markedly elevated and she has required IV hydralazine. Increase losartan to 50mg daily in addition to amlodipine. (7) Seizure disorder Current Visit: Yes Status: Chronic Code(s): G40.909 - EPILEPSY, UNSP, NOT INTRACTABLE, WITHOUT STATUS EPILEPTICUS SNOMED Code(s): 587878391 Comment: Continue phenytoin and lamictal. Phenytoin level in acceptable range. (8) DVT prophylaxis Current Visit: Yes Status: Acute Code(s): ZEC9904 - SNOMED Code(s): 679748560 Comment: SQ heparin (9) DNR (do not resuscitate) Current Visit: Yes Status: Acute
--- NOTE | 2016-12-12 10:34 | RAD ---
INDICATION: Left hip pain. COMPARISON: Radiograph dated December 11, 2016 TECHNIQUE: Noncontrast CT examination of the left hip. Axial images were acquired and sagittal and coronal reformats were created and independently analyzed. FINDINGS: Degenerative changes of the left hip include joint space narrowing and sclerotic change of the articulating surfaces. There is bony protuberance extending from the superior acetabulum to the left femoral neck. There is no definite cortical discontinuity or displacement indicate an acute fracture. The visualized soft tissues are grossly normal. There is no abnormal fluid collection or hematoma. IMPRESSION: Advanced degenerative changes of the left hip as described above without definite fracture or dislocation.
[2016-12-12 15:08] VITALS: BP 145/42
--- NOTE | 2016-12-12 15:15 | DS ---
DATE OF ADMISSION: 12/10/2015. DATE OF DISCHARGE: 12/12/2015. PRIMARY CARE PROVIDER: Dr. Yanez. PRINCIPAL DIAGNOSIS: 1. Altered mental status secondary to klebsiella pneumoniae urinary tract infection. 2. Left hip pain of unclear etiology. SECONDARY DIAGNOSES: 1. Cerebral palsy. 2. Seizure disorder. 3. History of cerebrovascular accident. 4. Hypertension. 5. Chronic obstructive pulmonary disease. 6. Depression. 7. Gastroesophageal reflux disease. DISCHARGE MEDICATIONS: 1. Phenytoin 300 mg p.o. at bedtime. 2. Tylenol 650 mg p.o. q.4 hours prn pain. 3. Amlodipine 10 mg p.o. daily (increased dose). 4. Ascorbic acid 500 mg p.o. daily. 5. Aspirin 81 mg p.o. daily. 6. Vitamin D3 50,000 units p.o. weekly. 7. Cranberry 425 mg p.o. daily. 8. Diazepam 5 mg p.r. q.5 days prn seizure. 9. Ferrous sulfate 325 mg p.o. daily. 10. Lasix 20 mg p.o. daily. 11. Lamictal 250 mg p.o. q.a.m., 500 mg p.o. q.p.m. 12. Losartan 50 mg p.o. daily (new). 13. Omeprazole 40 mg p.o. daily. 14. MiraLax 17 gm p.o. daily. 15. Senna/Docusate sodium two tabs p.o. b.i.d. 16. Tramadol 50 mg p.o. b.i.d. prn pain. 17. Augmentin 500 mg p.o. b.i.d. times 5 days. HOSPITAL COURSE: Ms. Jordan is an 86-year-old female who has a history of urinary tract infections leading to altered mental status in the past who presents to the emergency room with complaints of altered mental status. She was found to be slow to respond and confused. At that time of her admission, she was unable to participate in any history. The patient was found to have an abnormal urinalysis consistent with possible urinary tract infection and was admitted for such. Additionally, the patient was found to have markedly elevated blood pressure. The patient was placed on Zosyn given her past sensitivities and allergy profile. The patient by the morning of 12/11/2016 was markedly improved and her mental status back to normal. At that point, however, she was complaining of severe left hip pain. X-rays were obtained which revealed a possible fracture. A CT scan of the lower extremity was obtained on 12/12/2016 that did not reveal any evidence of fracture. The patient's pain is also better on 12/12/2016. In terms of the urinary tract infection, her culture is growing klebsiella pneumoniae and an additional gram negative bacilli. The patient has in the past had a number of pathogens in her urine. We will go ahead and change her from Zosyn to Augmentin 500 mg twice daily to complete another five days of therapy. Again, at this point the patient is back to her baseline. In terms of the patient's marked hypertension, adjustments have been made in her antihypertensive regime. In am increasing her Amlodipine to 10 mg daily and adding Losartan 50 mg p.o. daily. Her pain does seem to cause her blood pressure to spike, so this will need to be monitored. FOLLOW-UP CONCERNS: The patient is being discharged to [facility] today, 2016. ACTIVITY LEVEL: As tolerated. DIET: Regular. CONDITION ON DISCHARGE: Stable. Thirty-five minutes were spent discharging this patient. CC: Dr. Yanez, at [facility] * [id number]/[facility] #: [id number] [facility]
[2016-12-13] MEDS ORDERED: Losartan TAB* 25 MG PO SCH (09:00)
== END 2016-12-12 16:45 | DRG 690 ==
LOC: ED 20:34 → MEDTELE 23:38 → OBSVTOIN 12-11 16:45 → MED 12-11 22:00
PROVIDERS: ADMIT Hospitalist; ATTEND Hospitalist
DX: N39.0 Urinary tract infection, site not specified (principal); J44.9 Chronic obstructive pulmonary disease, unspecified; B96.1 Klebsiella pneumoniae [K. pneumoniae] as the cause of diseases classified elsewhere; M25.552 Pain in left hip; G80.9 Cerebral palsy, unspecified; G40.909 Epilepsy, unspecified, not intractable, without status epilepticus; Z86.73 Personal history of transient ischemic attack (TIA), and cerebral infarction without residual deficits; I10 Essential (primary) hypertension; F32.9 Major depressive disorder, single episode, unspecified; K21.9 Gastro-esophageal reflux disease without esophagitis; Z79.82 Long term (current) use of aspirin; Z96.641 Presence of right artificial hip joint; E66.9 Obesity, unspecified; Z66 Do not resuscitate; Z88.5 Allergy status to narcotic agent; Z88.8 Allergy status to other drugs, medicaments and biological substances; Z91.041 Radiographic dye allergy status; R33.9 Retention of urine, unspecified; M19.90 Unspecified osteoarthritis, unspecified site; M81.0 Age-related osteoporosis without current pathological fracture; H26.9 Unspecified cataract; D64.9 Anemia, unspecified; R79.89 Other specified abnormal findings of blood chemistry; Z68.32 Body mass index [BMI] 32.0-32.9, adult
CPT/HCPCS: 36415; 70450; 71010; 80048; 80053; 80185; 81003; 81015; 83605; 83735; 84443; 84484; 85025; 85610; 87040; 87077; 87086; 87186; 87641; 93005; A9270-GY; J0360; J1170; J1644; J2543

== ENCOUNTER 2017-04-26 16:38 | Inpatient (IN) | payer MEDICARE, MEDICAID ==
--- NOTE | 2017-04-26 18:06 | RAD ---
INDICATION: Shortness of breath. COMPARISON: Most recent comparison chest x-ray December 10, 2016 TECHNIQUE: Single AP portable view of the chest was obtained. FINDINGS: Image quality is compromised due to the relative inferiority of a portable chest x-ray. The heart and mediastinum exhibit normal size and contour. There is been interval development of patchy infiltrates overlying the right lung as well as a more confluent density measuring 1.6 cm at the lateral mid right lung. There is no evidence of a large pleural effusion. Visualized bones are normal for the patient's age. IMPRESSION: The patchy infiltrates overlying the right lung as well as a more confluent density measuring 1.6 cm at the mid-level right lateral lung. Infectious etiology is favored, but follow-up chest x-ray after an appropriate course of therapy is advised to ascertain resolution.
[2017-04-26 18:15] LABS: Hematocrit 31 % (35-47); Hemoglobin 10.5 g/dl (12.0-16.0); Mean Corpuscular HGB Conc 34 g/dl (31-36); Mean Corpuscular Hemoglobin 31 pg (27-31); Mean Corpuscular Volume 93 fL (80-97); Mean Platelet Volume 7 um3 (7.4-10.4); Red Blood Count 3.38 10^6/ul (4.0-5.4); Red Cell Distribution Width 15 % (10.5-15)
[2017-04-26 18:30] LABS: Albumin 3.1 g/dL (3.2-5.2); BUN/Creatinine Ratio 18.9 (8-20); Calcium 9.9 mg/dL (8.6-10.3); EGFR African American 76.7 (>60); EGFR Non-African American 59.7 (>60); Globulin 4.3 g/dL (2-4); Total Bilirubin 0.5 mg/dL (0.2-1.0); Total Protein 7.4 g/dL (6.4-8.9)
[2017-04-26 18:43] LABS: Potassium 2.5 mmol/L (3.5-5.0)
[2017-04-26 18:44] LABS: Troponin I 0.11 ng/mL (<0.04)
[2017-04-26] MEDS ORDERED: Aztreonam (*) 2 GM in NS 0.9% 50 ML* 50 ML IVPB ONE (19:03)
[2017-04-26] MEDS: KCL 20 MEQ/100 ML IVPREMIX* 20 MEQ/100 ML BAG IV SCH ×2 (19:31→21:35)
[2017-04-26] MEDS ORDERED: Acetaminophen TAB* 325 MG PO PRN (20:08)
[2017-04-26] MEDS ORDERED: Potassium Chloride LIQUID* 20 MEQ PACKET PO ONE (20:08)
[2017-04-26] MEDS ORDERED: Albuterol 2.5 MG/3 ML NEB.SOL* (0.083%) INH PRN (20:25)
--- NOTE | 2017-04-26 20:26 | RAD ---
CLINICAL HISTORY: Nausea, vomiting and constipation in a woman with a history of small bowel obstruction. Relevant history includes small bowel obstruction, colon resection and left hemiarthroplasty. COMPARISON: Multiple previous CT examinations, most recently dated January 06, 2016. TECHNIQUE: Noncontrast CT examination of the abdomen and pelvis from the lung bases through the initial tuberosities. FINDINGS: VISUALIZED LUNG BASES: There are patchy densities, mostly at the dependent visualized lung bases, new since the previous CT examination. There are very small bilateral pleural effusions. There is a small pericardial effusion. ABDOMEN AND PELVIS: Evaluation of the solid organs and vasculature is limited without intravenous contrast. Evaluation is further limited by streak artifact and a metallic object created by the patient's arms at her side. The liver, spleen and pancreas are grossly normal in appearance. At the left adrenal gland there is a stable 1.8 cm low-attenuation nodule. A hyperattenuating focus in the gallbladder may represent a small stone. The kidneys are normal in appearance without focal mass, calcification or signs of hydronephrosis. A stable large fluid density cyst is noted again in the right kidney. The oral contrast has progressed as far as the base of the cecum. The sigmoid colon is redundant in its course. The largely gas-filled sigmoid colon exhibits gaseous distention measuring up to 8.3 cm in diameter. There is no twisting or "beaking" appearance that would be characteristic of a volvulus. There is no visible bowel wall thickening or evidence of perforation. There is no gross retroperitoneal or mesenteric lymphadenopathy. The pelvic viscera is normal in appearance. The mildly calcified abdominal aorta and iliac arteries are normal in course and diameter. The right hip prosthesis appears to be anatomically aligned. Degenerative changes of the lower thoracic and lumbar spine includes loss of intervertebral disc height and exuberant bridging osteophyte formation at most levels of the visualized thoracic and lumbar spine.There are no sinister bone lesions. IMPRESSION: 1. The redundant gas-filled sigmoid colon is dilated up to 8.2 cm. There is no twisting or "beaking" appearance characteristic of sigmoid volvulus. There are no acute inflammatory changes such as bowel wall thickening or mesenteric fat stranding. 2. Interval appearance of patchy infiltrates at the bilateral lung bases with small pleural effusions relative to the most recent CT examination dated January 06, 2016. Please correlate to respiratory symptoms and/or signs of pneumonia. 3. Interval development of a small pericardial effusion of uncertain clinical significance. 4. Additional chronic and degenerative findings described in the body of the report.
[2017-04-26] MEDS ORDERED: Heparin DRIP 25,000 UNITS(*) 25,000 UNITS/500 ML BAG IVPB SCH (20:45)
[2017-04-26] MEDS: hydrALAZINE IV* 20 MG/ML VIAL IV SLOW PU PRN (21:00)
[2017-04-26] MEDS ORDERED: predniSONE TAB* 20 MG PO SCH (21:00)
[2017-04-26] MEDS ORDERED: Heparin VIAL(*) 5000 UNITS/ML VIAL (FIVE THOUSAND) IV SCH (21:00)
[2017-04-26] MEDS ORDERED: Senna/Docusate (NF) TAB PO SCH (21:00)
[2017-04-26] MEDS: Azithromycin IV(*) 500 MG in NS 0.9% 250 ML* 250 ML IVPB SCH (21:10)
[2017-04-26] MEDS: NS 0.9% 1000 ML* 1,000 ML IV SCH (21:13)
[2017-04-26] MEDS ORDERED: ZOSYN 3.375 GM x ONE DOSE over 30 miuntes IVPB ×2 (21:30)
[2017-04-26] MEDS ORDERED: Heparin VIAL(*) 5000 UNITS/ML VIAL (FIVE THOUSAND) SUBCUT SCH (22:00)
[2017-04-26] MEDS: Albuterol/Ipratropium NEB.SOL* Albuterol 2.5 MG/Ipratropium 0.5 MG 3 ML INH SCH (22:47)
[2017-04-26] MEDS: Mometasone/Formoter 200/5 MDI INH SCH (22:50)
[2017-04-26] MEDS: Docusate CAP* 100 MG PO SCH (23:33)
[2017-04-26] MEDS: lamoTRIgine TAB(*) 100 MG PO SCH (23:34)
[2017-04-26] MEDS: Phenytoin CAP(*) 100 MG CAP.ER PO SCH (23:36)
[2017-04-26] MEDS: Senna TAB PO SCH (23:37)
--- NOTE | 2017-04-27 00:01 | HP ---
HISTORY AND PHYSICAL: DATE OF ADMISSION: 04/26/17 PRIMARY CARE PROVIDER: Pancho. ATTENDING PHYSICIAN WHILE IN THE HOSPITAL: Dr. Schulz* (report being dictated by Kian Gary NP). CHIEF COMPLAINT: 1. Cough. 2. Not feeling well. HISTORY OF PRESENT ILLNESS: Mrs. Jordan is an 86-year-old female patient. She carries a history of cerebral palsy. She carries a history of seizures. In addition to this, also has history of CVA, hypertension, COPD, depression, osteoarthritis and GERD. She comes into the ER today stating that last couple of days she has had cough. She has been bringing up yellow type sputum. She has not been feeling well. She has been feeling weak. She said she had an episode today where she vomited and she did not feel well. Pancho was concerned because she did vomit and there were some reports of abdominal discomfort, so they sent her into the hospital to be evaluated. She came in. She was noted again to be coughing. She was found to have an elevated troponin , low potassium, and white count was up. She was coughing. There was concern for the patient and the chest x- ray showed pneumonia. She denied specifically to me any shortness of breath. She denied any abdominal pain currently. She did admit to the nausea. She denied having any diarrhea. Because of this, we were asked to evaluate for admission. PAST MEDICAL HISTORY: Significant for: 1. Cerebral palsy. 2. Seizure. 3. CVA. 4. Hypertension. 5. COPD. 6. Depression. 7. Osteoarthritis. 8. GERD. PAST SURGICAL HISTORY: She had a right total hip arthroplasty. HOME MEDICATIONS: Include: 1. Diazepam MS 5 mg q.5 days as needed for seizure. 2. Albuterol 1 neb inhaled every 2 hours as needed. 3. Tylenol 650 mg p.o. every 4 hours. 4. Cozaar 50 mg p.o. daily. 5. Aspirin 81 mg daily. 6. Senna/docusate 2 tablets p.o. b.i.d. 7. MiraLAX 17 g p.o. daily. 8. DuoNeb 1 neb inhaled every 4 hours. 9. Dilantin 200 mg p.o. bedtime. 10. Phenytoin 200 mg at bedtime. 11. Lamictal 250 mg in the morning. 12. Ranitidine 150 mg daily. 13. Ferrous sulfate 325 mg daily. 14. Vitamin C 500 mg daily. 15. Lamictal 500 mg at bedtime. 16. Norvasc 5 mg daily. 17. Lasix 20 mg daily. 18. Tramadol 50 mg daily at 1700. ALLERGIES TO MEDICATIONS: Include MORPHINE, IODINE, CEFUROXIME, CIPRO and IV DYE. FAMILY HISTORY: Father had a history of LA. SOCIAL HISTORY: She is a nonsmoker. She does not drink alcohol. She is a do not resuscitate, do not intubate. Surrogate decision maker is her son. REVIEW OF SYSTEMS: There was no documented fever. She denied having any significant weight change. There was no double vision. There was no ear discharge. She denied having any rhinorrhea. She does admit to having cough. She denies any shortness of breath. Denied any abdominal pain. She did have 1 episode of vomiting. She denied having any diarrhea. There was no dysuria. There was no frequency. No seizure. She denied having any loss of consciousness. Review of 14 systems completed, all others negative. PHYSICAL EXAMINATION GENERAL: At this time, Mrs. Jordan is an 86-year-old female patient. She is sitting in the ER stretcher. She does not appear to be in any acute distress. VITAL SIGNS: Blood pressure 191/63, pulse 72, respirations 27, O2 sat 98%, temperature 99.5. HEENT: Head is atraumatic and normocephalic. Eyes: EOMs are intact. Sclerae anicteric and not pale. Throat: Oral mucosa appears to be moist. No oropharyngeal erythema. NECK: Supple. LUNGS: She had rhonchi noted on the right side. She had equal diaphragmatic expansion. HEART: Sounds S1, S2. Regular rate and rhythm. No murmurs, rubs or gallops. ABDOMEN: Soft. It was mildly distended but it was flat and nontender. Bowel sounds present. EXTREMITIES: Pulses were 2+ throughout. She is able to move all 4 extremities with 5/5 strength. NEUROLOGIC: The patient is awake, is alert and is oriented x3. Tongue midline. Clamper are equal. No gross focal deficits. SKIN: Intact. DIAGNOSTIC STUDIES/LABORATORY DATA: The labs today revealed a WBC of 11.0, RBC of 3.38, hemoglobin of 10.5, hematocrit 31, platelet count is 320. Sodium is 135, the potassium is 2.5, the chloride was 100, bicarb 26, BUN 17, creatinine 0.90, glucose 115, lactic 0.8, calcium 9.9. Total bili 0.5, AST 15, ALT 10, alk phos 128, troponin 0.11, albumin 3.1. She had an abdominal pelvis CT scan obtained today which revealed the redundant gas filled sigmoid colon is dilated to 8.2 cm. There is no twisting or beaking appearance characteristic of sigmoid volvulus. There are no acute inflammatory changes such as bowel wall thickening or mesenteric stranding. Interval appearance of patchy infiltrates in bilateral lung bases with small pleural effusions, rule out at the most recent CT examination, interval development of small pericardial effusion of uncertain clinical significance. Additional chronic and degenerative findings described in the body of the report. She did have a chest x-ray obtained today and under my review I did appreciate bilateral infiltrates. Radiology read it as patchy infiltrates overlying the right lung as well as fluid density measuring 1.6 cm in the mid right lateral lung. Infectious etiology is favored. Followup chest x-ray after appropriate course of therapy is advised. She had an EKG obtained today appears to be atrial fibrillation. It is hard to say that it is a wandering baseline, it could be normal sinus rhythm with PAC's. She does have diffuse ST depression. In reviewing her previous EKG, the ST depression is there but it appears to be more pronounced on this EKG. Old medical records were reviewed. ASSESSMENT AND PLAN: Mrs. Jordan is an 86-year-old female patient coming into the ER today with complaints of cough, weakness and not feeling well. On evaluation here in the ED, it was noted she had pneumonia. She will be admitted under inpatient status for: 1. Pneumonia. At this point, we will go ahead and put her on Zosyn and azithromycin. I will get Legionella and Strep antigen. I will try to get sputum cultures as well. Blood cultures have been sent. We will check a urinalysis and urine culture as well but we will hydrate her, put her on fluids , aggressive pulmonary toileting. I did put her on DuoNeb, albuterol, Dulera and steroids as well. 2. Atrial fibrillation, new onset. It appears that she does have atrial fibrillation. Troponin is mildly elevated. She does have diffuse ST depressions. The second EKG does appear to be similar to her previous EKG, but the atrial fibrillation is according to the patient new. At this point, I will put her on a heparin drip. We will need to determine for this patient, long- term anticoagulation. For the time being, I will put her on a heparin drip. Also her troponins are mildly elevated which is probably demand ischemia but at this point, I would like to go ahead and put her on the heparin for the atrial fibrillation for stroke prevention and we will get an echo as well tomorrow morning and would consider getting a cardiology consult. Again, long-term anticoagulation will need to be determined but I suspect she went into atrial fibrillation because of the acute illness. 3. Cerebral palsy. Continue supportive care. 4. Seizures. Continue with secondary seizure prophylaxis. 5. Hypertension. Her blood pressure is in the 190s down here. I have ordered p.r.n. hydralazine. We will continue with her p.o. meds. 6. Chronic obstructive pulmonary disease. We will put on nebs round the clock , Dulera and steroids. 7. Depression. Continue with supportive care. 8. Osteoarthritis. Continue with p.r.n. Tylenol. 9. Gastroesophageal reflux disease. Continue PPI therapy. 10. Hypokalemia. We will go ahead and replace this, repeat in the morning. 11. DVT prophylaxis. She will be placed again on heparin drip. 12. Code status. She is a DNR/DNI. TIME SPENT: On the admission was 60 minutes, greater than half the time spent face- to-face with the patient obtaining my history and physical, other half of the time spent going over the plan of care with the patient and implementing plan of care. I did discuss the plan of care with my attending, Dr. Schulz, who is in agreement. KIAN GARY NP CC: Pancho* [id number]/[facility] #: [id number] TREVOR
[2017-04-27] MEDS: NS 0.9% 1000 ML* 1,000 ML IV SCH ×2 (00:06→23:11)
[2017-04-27] MEDS: KCL 20 MEQ/100 ML IVPREMIX* 20 MEQ/100 ML BAG IV SCH ×3 (00:06→11:47)
[2017-04-27] MEDS: Ondansetron INJ* 2 MG/ML VIAL IV PRN (00:56)
[2017-04-27] MEDS: Piperac/Tazob 3.375 gm in NS* 3.375 GM in PREMIX* 0 ML IVPB SCH ×6 (02:08→17:20)
[2017-04-27] MEDS: Albuterol/Ipratropium NEB.SOL* Albuterol 2.5 MG/Ipratropium 0.5 MG 3 ML INH SCH ×4 (03:11→19:29)
[2017-04-27 03:51] LABS: Hematocrit 29 % (35-47); Hemoglobin 9.3 g/dl (12.0-16.0); Mean Corpuscular HGB Conc 32 g/dl (31-36); Mean Corpuscular Hemoglobin 30 pg (27-31); Mean Corpuscular Volume 93 fL (80-97); Mean Platelet Volume 7 um3 (7.4-10.4); Red Cell Distribution Width 15 % (10.5-15)
[2017-04-27 03:58] LABS: Add Diff/Slide Review? Slide Review Added; Comments Flag Yes
[2017-04-27 04:08] LABS: BUN/Creatinine Ratio 19.5 (8-20); Calcium 8.6 mg/dL (8.6-10.3); EGFR African American 85.4 (>60); EGFR Non-African American 66.4 (>60); Potassium 3.4 mmol/L (3.5-5.0)
[2017-04-27 04:11] LABS: Troponin I 0.1 ng/mL (<0.04)
[2017-04-27 04:19] LABS: Immature Granulocytes 28 % (0-9); Metamyelocytes % 1 % (0-2); Myelocytes % 1 % (0-1); Neutrophil % 68 % (38-83)
[2017-04-27 04:20] LABS: RBC Morphology Normal (Normal)
[2017-04-27] MEDS: Mometasone/Formoter 200/5 MDI INH SCH ×2 (07:36→19:31)
[2017-04-27] MEDS: Docusate CAP* 100 MG PO SCH ×2 (07:58→21:19)
[2017-04-27] MEDS: Senna TAB PO SCH ×2 (08:20→21:19)
--- NOTE | 2017-04-27 08:41 | PN ---
Subjective Date of Service: 04/27/17 Interval History: Pt is mildly disoriented to her age and time, but alert and cooperative. Stated that she has had "a cold". RN noted blood in vomitus yesterday. denies abd pain Objective Active Medications: Acetaminophen (Tylenol Tab*) 650 mg PO Q4H PRN PRN Reason: FEVER/PAIN Albuterol (Ventolin 2.5 Mg/3 Ml Neb.María*) 2.5 mg INH Q2H PRN PRN Reason: SOB/WHEEZING Albuterol/Ipratropium (Duoneb (Albuterol 2.5 Mg/Ipratropium 0.5 Mg)) 1 neb INH [id number] AWAKE [facility] Last Admin: 04/27/17 07:33 Dose: 1 neb Aspirin (Aspirin Low Dose Tab*) 81 mg PO DAILY [facility] Docusate Sodium (Colace Cap*) 200 mg PO BID [facility] Last Admin: 04/27/17 07:58 Dose: Not Given Hydralazine HCl (Apresoline Iv*) 5 mg IV SLOW PU Q6H PRN PRN Reason: BLOOD PRESSURE Last Admin: 04/26/17 21:00 Dose: 5 mg Sodium Chloride (Ns 0.9% 1000 Ml*) 1,000 mls @ 100 mls/hr IV PER RATE [facility] Last Admin: 04/27/17 00:06 Dose: 100 mls/hr Azithromycin 500 mg/ Sodium (Chloride) 250 mls @ 250 mls/hr IVPB Q24H [facility] Last Admin: 04/26/17 21:10 Dose: 250 mls/hr Piperacillin Sod/Tazobactam (Sod 3.375 gm/ IV Solution) 115 mls @ 28.75 mls/hr IVPB Q8H [facility] Last Admin: 04/27/17 02:08 Dose: 28.75 mls/hr Potassium Chloride (Potassium Chloride 20 Meq/100 Ml Ivpremix*) 20 meq in 100 mls @ 50 mls/hr IV Q2H [facility] Stop: 04/27/17 11:59 Pantoprazole Sodium 80 mg/ (Sodium Chloride) 250 mls @ 25 mls/hr IVPB Q10H [facility] Lamotrigine (Lamictal Tab(*)) 250 mg PO QAM [facility] Lamotrigine (Lamictal Tab(*)) 500 mg PO BEDTIME [facility] Last Admin: 04/26/17 23:34 Dose: 500 mg Mometasone Furoate/Formoterol Fumar (Dulera 200/5 Mdi*) 2 puff INH BID [facility] Last Admin: 04/27/17 07:36 Dose: 2 puff Ondansetron HCl (Zofran Inj*) 4 mg IV Q6H PRN PRN Reason: NAUSEA Last Admin: 04/27/17 00:56 Dose: 4 mg Phenytoin Sodium (Dilantin Cap(*)) 200 mg PO BEDTIME [facility] Last Admin: 04/26/17 23:36 Dose: 200 mg Senna (Senokot Tab*) 2 tab PO BID [facility] Last Admin: 04/27/17 08:20 Dose: Not Given Tramadol HCl (Ultram*) 50 mg PO DAILY@1700 [facility] Vital Signs 04/26/17 04/26/17 04/26/17 20:30 20:51 21:00 Temperature Pulse Rate 69 71 61 Respiratory 25 18 34 Rate Blood Pressure 196/70 196/70 201/66 (mmHg) O2 Sat by Pulse 97 98 97 Oximetry 04/26/17 04/26/17 04/26/17 21:05 21:32 21:44 Temperature 98.7 F Pulse Rate 83 Respiratory 30 18 Rate Blood Pressure 179/74 179/74 (mmHg) O2 Sat by Pulse Oximetry 04/26/17 04/26/17 04/26/17 22:40 22:50 22:51 Temperature 98.1 F Pulse Rate 55 80 80 Respiratory 24 22 22 Rate Blood Pressure 139/93 (mmHg) O2 Sat by Pulse 94 99 99 Oximetry 04/26/17 04/27/17 04/27/17 23:57 04:14 07:36 Temperature 98.1 F 98.2 F Pulse Rate 119 75 91 Respiratory 20 20 172 Rate Blood Pressure 155/42 143/51 (mmHg) O2 Sat by Pulse 99 96 99 Oximetry 04/27/17 07:39 Temperature 97.9 F Pulse Rate 81 Respiratory 23 Rate Blood Pressure 99/76 (mmHg) O2 Sat by Pulse 91 Oximetry Oxygen Devices in Use Now: Nasal Cannula - at 2 L Appearance: 86 yo F in nAD, AAOx2 Eyes: No Scleral Icterus, PERRLA Ears/Nose/Mouth/Throat: NL Teeth, Lips, Gums, Mucous Membranes Moist Neck: NL Appearance and Movements; NL JVP, Trachea Midline Respiratory: Symmetrical Chest Expansion and Respiratory Effort, - - diffuse rhonchi b/l lungs Cardiovascular: - - irregular, no murmur Abdominal: NL Sounds; No Tenderness; No Distention, No Hepatosplenomegaly Lymphatic: No Cervical Adenopathy Extremities: No Clubbing, Cyanosis, - - trace pedal edema b/l Skin: No Nodules or Sclerosis, - Neurological: - - able to move toes on b/l feet, unable to raise legs off bed- motor at 3/5, LUE with mild hand contraction and pronator drift at 4/5, R hand at 4+/5, speech clear Result Diagrams: 04/27/17 09:56 04/27/17 03:30 Microbiology and Other Data: Microbiology 04/27/17 06:50 Stool Occult Blood (JENNIFER) - Final Stool 04/27/17 01:30 Gastric Occult Blood - Final Gastric Fluid Assess/Plan/Problems-Billing Assessment: 86 yo F with h/o cerebral palsy/COPD/seizures/HTN presented with resp distress and A. fib - Patient Problems (1) Acute hypoxemic respiratory failure Comment: due to aspiration pneumonia cont Zosyn/Azithro suspect pt aspirated when vomiting.Doubt dysphagia, but will order RN swallow eval(speech not here on weekend) (2) Aspiration pneumonia Comment: tx as above (3) Hemoptysis Comment: appears to have resolved will start Protonix gtt and clears for diet. F/u H&H stop Fe sulfate supplementation(could be irritating) so far Hb fairly stable. It is possible that pt bled from Elisa Lamas tear. Due to respiratory status, EGD would not be well tolerated. Will cont PPI and tx conservatively, moniotr H&H. (4) Atrial fibrillation Comment: new, rate controlled. Heparin gtt stopped due to GI bleed cont telem (5) COPD (chronic obstructive pulmonary disease) Comment: with mild exacerbation will start solu Medrol. stop prednisone cont nebs (6) Elevated INR Comment: due to inadequate nutrition? will tx with vit K and monitor (7) DNR (do not resuscitate) Comment: spoke with son Gregorio, who confirmed DNR, but OK for intubation (8) Elevated troponin Comment: peaked at 0.11-suspect demand ischemia will f/u with Echo, also pt was noted to have a pericardial effusion on CT She has had a chronically elevated troponin. (9) DVT prophylaxis Comment: SCD's ,anticoagulants contraindicated due to hematemesis
--- NOTE | 2017-04-27 08:43 | RAD ---
HISTORY: Shortness of breath COMPARISONS: April 26, 2017 VIEWS:1: Single frontal portable view of the chest at 8:25 AM FINDINGS: LINES AND TUBES: None. CARDIOMEDIASTINAL SILHOUETTE: The cardiomediastinal silhouette is normal for portable technique. PLEURA: The costophrenic angles are sharp. No pleural abnormalities are noted. LUNG PARENCHYMA: There is hyperinflation. The focal opacification in the right midlung is not well visualized on the current examination, partially obscured by overlying monitoring leads. ABDOMEN: The upper abdomen is clear. There is no subphrenic gas. BONES AND SOFT TISSUES: No bone or soft tissue abnormalities are noted. IMPRESSION: LIMITED STUDY. HYPERINFLATION. NO ACTIVE CARDIOPULMONARY DISEASE.
[2017-04-27] MEDS ORDERED: Phytonadione Oral Solution* 5 MG/25 ML UDC PO ONE (08:47)
[2017-04-27] MEDS ORDERED: amLODIPine TAB* 5 MG PO SCH (09:00)
[2017-04-27] MEDS ORDERED: Ferrous Sulfate TAB* 325 MG PO SCH (09:00)
[2017-04-27] MEDS ORDERED: Famotidine TAB* 20 MG PO SCH (09:00)
[2017-04-27] MEDS ORDERED: Losartan TAB* 25 MG PO SCH (09:00)
[2017-04-27] MEDS: Pantoprazole IV* 80 MG in NS 0.9% 250 ML* 250 ML IVPB SCH ×2 (09:19→18:18)
[2017-04-27] MEDS: methylPREDNISolone SOD 40 MG* 1 ML VIAL IV SCH ×2 (09:30→21:28)
[2017-04-27] MEDS: lamoTRIgine TAB(*) 100 MG PO SCH ×2 (09:34→21:20)
[2017-04-27] MEDS: Aspirin Low Dose CHEW TAB* 81 MG PO SCH (09:34)
[2017-04-27 10:03] LABS: Urine Bacteria Absent (Absent); Urine Bilirubin Negative (Negative); Urine Glucose 1+(50 mg/dL) (Negative); Urine Nitrite Negative (Negative)
[2017-04-27 10:06] LABS: Hematocrit 32 % (35-47); Hemoglobin 10.2 g/dl (12.0-16.0)
[2017-04-27] MEDS: traMADol TAB* 50 MG PO SCH (17:27)
[2017-04-27] MEDS: Phenytoin CAP(*) 100 MG CAP.ER PO SCH (21:22)
[2017-04-27] MEDS: hydrALAZINE IV* 20 MG/ML VIAL IV SLOW PU PRN (21:32)
[2017-04-27] MEDS: Azithromycin IV(*) 500 MG in NS 0.9% 250 ML* 250 ML IVPB SCH (21:35)
[2017-04-28] MEDS: hydrALAZINE IV* 20 MG/ML VIAL IV SLOW PU PRN (01:11)
[2017-04-28] MEDS: Piperac/Tazob 3.375 gm in NS* 3.375 GM in PREMIX* 0 ML IVPB SCH ×8 (01:17→18:13)
[2017-04-28] MEDS: Albuterol/Ipratropium NEB.SOL* Albuterol 2.5 MG/Ipratropium 0.5 MG 3 ML INH SCH ×4 (01:30→21:29)
[2017-04-28] MEDS ORDERED: NS 0.9% 250 ML* 250 ML ONE (04:15)
[2017-04-28] MEDS: Pantoprazole IV* 80 MG in NS 0.9% 250 ML* 250 ML IVPB SCH (04:22)
[2017-04-28] MEDS: Mometasone/Formoter 200/5 MDI INH SCH ×2 (07:31→21:17)
[2017-04-28 08:06] LABS: BUN/Creatinine Ratio 19.6 (8-20); Calcium 8.3 mg/dL (8.6-10.3); EGFR African American 74.8 (>60); EGFR Non-African American 58.2 (>60); Potassium 3.2 mmol/L (3.5-5.0)
[2017-04-28] MEDS: methylPREDNISolone SOD 40 MG* 1 ML VIAL IV SCH ×2 (08:07→21:17)
[2017-04-28] MEDS: lamoTRIgine TAB(*) 100 MG PO SCH ×2 (08:09→20:57)
[2017-04-28] MEDS: Aspirin Low Dose CHEW TAB* 81 MG PO SCH (08:09)
[2017-04-28] MEDS: Omeprazole CAP* 20 MG PO SCH ×2 (08:10→20:58)
[2017-04-28] MEDS: amLODIPine TAB* 5 MG PO SCH (08:10)
[2017-04-28] MEDS: Furosemide TAB* 20 MG PO SCH (08:10)
[2017-04-28] MEDS: Senna TAB PO SCH ×2 (08:23→20:57)
[2017-04-28] MEDS: Docusate CAP* 100 MG PO SCH ×2 (08:23→20:58)
[2017-04-28 08:33] LABS: Hematocrit 28 % (35-47); Hemoglobin 9.3 g/dl (12.0-16.0); Mean Corpuscular HGB Conc 33 g/dl (31-36); Mean Corpuscular Hemoglobin 31 pg (27-31); Mean Corpuscular Volume 94 fL (80-97); Mean Platelet Volume 7 um3 (7.4-10.4); Red Blood Count 3.03 10^6/ul (4.0-5.4); Red Cell Distribution Width 15 % (10.5-15); White Blood Count 12.1 10^3/ul (3.5-10.8)
--- NOTE | 2017-04-28 10:51 | ECHO ---
Patient: JULIEN ESCALERA [facility] Rec#: [id number] : 1930 Date: 04/28/2017 Age: 86y Height: 167.64 cm / 66.0 in Weight: 76.2 kg / 167.9 lbs Sex: F BSA: 1.86 Room#: [facility] Admit Date#: 04/26/2017 Type: Inpatient Referring: Rosalva Bravo MD Reading: Ricco Steen MD [employer] Consultant: Brianna Eid, [facility] CC: Singh GATES,Natasha Transthoracic Echocardiogram Indication: Resp Abn/Elevated troponin BP: 153/50 HR: 69 Rhythm: A-Fib Findings History: Cerebral Palsy,seizures,CVA,HTN,COPD,pneumonis.GERD,new A-fib. Technical Comments: The study quality is good. Completed at 0950. Left Ventricle: The left ventricular chamber size is normal. Global left ventricular wall motion and contractility are within normal limits. There is normal left ventricular systolic function. The estimated ejection fraction is 55-60%. The assessment of diastolic function is non-diagnostic. The patient was unable to perform a Valsalva maneuver. Left Atrium: The left atrium is moderately dilated. Right Ventricle: The right ventricular cavity size is normal. The right ventricular global systolic function is normal. Right Atrium: The right atrium is moderately dilated. Aortic Valve: The aortic valve is trileaflet. The aortic valve leaflets are moderately thickened. Systolic excursion of the aortic valve cusps is reduced. There is mild aortic regurgitation. There is mild aortic stenosis.DI 0.6 The highest aortic valve velocity was obtained with the standard probe from the A5C view. Mitral Valve: The mitral valve leaflets are mildly thickened. There is mild to moderate mitral regurgitation. Tricuspid Valve: The tricuspid valve leaflets are mildly thickened. There is mild to moderate tricuspid regurgitation. There is evidence of moderate to severe pulmonary hypertension. Pulmonic Valve: The pulmonic valve appears normal. There is trace to mild pulmonic regurgitation. There is no pulmonic stenosis. Pericardium: There is no significant pericardial effusion. A pericardial fat pad is visualized. Aorta: There is no dilatation of the ascending aorta. There is no dilatation of the aortic arch. There is no dilation of the aortic root. Pulmonary Artery: The main pulmonary artery is not well visualized. Venous: The inferior vena cava appears normal in size. There is an approximate 50% respiratory change in the inferior vena cava dimension. Hepatic vein systolic flow is reversed. Conclusions There is normal left ventricular systolic function. The estimated ejection fraction is 55-60%. Global left ventricular wall motion and contractility are within normal limits. The left ventricular chamber size is normal. The left atrium is moderately dilated. The right atrium is moderately dilated. There is mild aortic regurgitation. There is mild aortic stenosis. There is mild to moderate mitral regurgitation. There is mild to moderate tricuspid regurgitation (TR). There is evidence of moderate to severe pulmonary hypertension. Since the prior echocardiogram completed 12/13/14, pertinent changes are prior TR graded trace and prior moderate pulmonary hypertension noted. Measurements Name Value Normal Range RVIDd (AP) 2D 2.3 cm (0.9 - 2.6) RVDdMajor (2D) 3.2 cm (2.2 - 4.4) RAd ISD 4CH 6.4 cm (3.4 - 4.9) RA (A4C)W 3.9 cm (2.9 - 4.6) IVSd (2D) 1 cm (0.6 - 1) LVPWd (2D) 1.1 cm (0.6 - 1) LVIDd (2D) 4.6 cm (3.6 - 5.4) LVIDs (2D) 3.2 cm - LV FS (2D) 29 % (25 - 45) Aortic Annulus 1.7 cm (1.4 - 2.6) Ao root diameter (2D) 2.5 cm (2.1 - 3.5) Ascending Ao 3 cm (2.1 - 3.4) Aortic arch 2.7 cm (1.8 - 3.4) Descending Ao 0.5 cm - LA dimension (AP) 2D 3.9 cm (2.3 - 3.8) LAd ISD 4CH 6.8 cm (2.9 - 5.3) LA ISD 4CH W 3.9 cm (2.5 - 4.5) Name Value Normal Range LA ESV SP 4CH (A/L) 77 ml - LA ESV SP 2CH (A/L) 65 ml - LA ESV BP (A/L) 74 ml - LA ESV BP (A/L) index 39.78 ml/m2 - LA ESV SP 4CH (MOD) 72 ml - LA ESV SP 2CH (MOD) 63 ml - Name Value Normal Range MV E-wave Vmax 1.5 m/sec - MV deceleration time 231 msec - LV septal e' Vmax 0.06 m/sec - LV lateral e' Vmax 0.09 m/sec - LV E:e' septal ratio 25 ratio - LV E:e' lateral ratio 16.67 ratio - Name Value Normal Range AV Vmax 2.3 m/sec - AV VTI 49.2 cm - AV peak gradient 21.41 mmHg - AV mean gradient 9.73 mmHg - LVOT diameter 1.9 cm - LVOT Vmax 1.4 m/sec - LVOT VTI 28.9 cm - LVOT peak gradient 8.24 mmHg - LVOT mean gradient 3.89 mmHg - KAMAR (continuity Vmax) 1.7 cm2 - KAMAR (continuity VTI) 1.7 cm2 - AR peak gradient 56.56 mmHg - Name Value Normal Range TR Vmax 3.4 m/sec - TR peak gradient 46 mmHg - RAP 8 mmHg - RVSP 54 mmHg - IVC diameter 1.7 cm - Name Value Normal Range PV Vmax 1.4 m/sec - PV peak gradient 7.44 mmHg -
[2017-04-28] MEDS ORDERED: Furosemide IV* 10 MG/ML VIAL (40 MG) IV ONE (11:32)
[2017-04-28] MEDS ORDERED: Nitroglycerin 2% OINT* 1 GM PAK TOPICAL ONE (11:33)
[2017-04-28] MEDS ORDERED: Nitroglycerin 2% OINT* 1 GM PAK ONE (11:37)
[2017-04-28] MEDS ORDERED: Furosemide IV* 10 MG/ML VIAL (40 MG) ONE (11:37)
--- NOTE | 2017-04-28 14:59 | PN ---
Subjective Date of Service: 04/28/17 Interval History: pt was noted to be in respiratory compromise today with HTN and increased WOB. Stabilized after nitroglcerin paste and IV Lasix Objective Active Medications: Acetaminophen (Tylenol Tab*) 650 mg PO Q4H PRN PRN Reason: FEVER/PAIN Albuterol (Ventolin 2.5 Mg/3 Ml Neb.María*) 2.5 mg INH Q2H PRN PRN Reason: SOB/WHEEZING Albuterol/Ipratropium (Duoneb (Albuterol 2.5 Mg/Ipratropium 0.5 Mg)) 1 neb INH [id number] AWAKE [facility] Last Admin: 04/28/17 12:40 Dose: 1 neb Amlodipine Besylate (Norvasc Tab*) 5 mg PO DAILY [facility] Last Admin: 04/28/17 08:10 Dose: 5 mg Aspirin (Aspirin Low Dose Tab*) 81 mg PO DAILY [facility] Last Admin: 04/28/17 08:09 Dose: 81 mg Docusate Sodium (Colace Cap*) 200 mg PO BID [facility] Last Admin: 04/28/17 08:23 Dose: Not Given Furosemide (Lasix Tab*) 20 mg PO DAILY [facility] Last Admin: 04/28/17 08:10 Dose: 20 mg Hydralazine HCl (Apresoline Iv*) 10 mg IV SLOW PU Q4H PRN PRN Reason: BLOOD PRESSURE Last Admin: 04/28/17 01:11 Dose: 10 mg Azithromycin 500 mg/ Sodium (Chloride) 250 mls @ 250 mls/hr IVPB Q24H [facility] Last Admin: 04/27/17 21:35 Dose: 250 mls/hr Piperacillin Sod/Tazobactam (Sod 3.375 gm/ IV Solution) 115 mls @ 28.75 mls/hr IVPB Q8H [facility] Last Admin: 04/28/17 09:30 Dose: 28.75 mls/hr Lamotrigine (Lamictal Tab(*)) 250 mg PO QAM [facility] Last Admin: 04/28/17 08:09 Dose: 250 mg Lamotrigine (Lamictal Tab(*)) 500 mg PO BEDTIME [facility] Last Admin: 04/27/17 21:20 Dose: 500 mg Methylprednisolone Sodium Succinate (Solu-Medrol 40 Mg) 40 mg IV Q12H [facility] Last Admin: 04/28/17 08:07 Dose: 40 mg Mometasone Furoate/Formoterol Fumar (Dulera 200/5 Mdi*) 2 puff INH BID [facility] Last Admin: 04/28/17 07:31 Dose: 2 puff Omeprazole (Prilosec Cap*) 20 mg PO BID [facility] Last Admin: 04/28/17 08:10 Dose: 20 mg Ondansetron HCl (Zofran Inj*) 4 mg IV Q6H PRN PRN Reason: NAUSEA Last Admin: 04/27/17 00:56 Dose: 4 mg Phenytoin Sodium (Dilantin Cap(*)) 200 mg PO BEDTIME [facility] Last Admin: 04/27/17 21:22 Dose: 200 mg Senna (Senokot Tab*) 2 tab PO BID [facility] Last Admin: 04/28/17 08:23 Dose: Not Given Tramadol HCl (Ultram*) 50 mg PO DAILY@1700 [facility] Last Admin: 04/27/17 17:27 Dose: Not Given Vital Signs 04/27/17 04/27/17 04/27/17 15:34 19:32 20:00 Temperature 97.5 F Pulse Rate 68 75 Respiratory 20 20 18 Rate Blood Pressure 154/57 (mmHg) O2 Sat by Pulse 99 100 Oximetry 04/27/17 04/27/17 04/28/17 20:27 23:51 00:00 Temperature 97.4 F 97.5 F Pulse Rate 85 85 Respiratory 18 20 Rate Blood Pressure 175/59 (mmHg) O2 Sat by Pulse 98 95 96 Oximetry 04/28/17 04/28/17 04/28/17 00:18 03:39 07:33 Temperature 96.4 F Pulse Rate 82 65 70 Respiratory 20 18 Rate Blood Pressure 181/57 153/50 (mmHg) O2 Sat by Pulse 100 100 Oximetry 04/28/17 04/28/17 04/28/17 07:57 08:00 11:26 Temperature 97.9 F Pulse Rate 67 68 Respiratory 22 16 22 Rate Blood Pressure 159/58 191/60 (mmHg) O2 Sat by Pulse 99 98 Oximetry 04/28/17 04/28/17 04/28/17 11:51 12:41 14:07 Temperature Pulse Rate 75 70 Respiratory 18 Rate Blood Pressure 178/70 160/73 (mmHg) O2 Sat by Pulse 93 99 Oximetry Oxygen Devices in Use Now: Nasal Cannula - at 2 L Appearance: 86 yo F, confused stating that she feels afraid, disoriented, oriented to self only Eyes: No Scleral Icterus, PERRLA Ears/Nose/Mouth/Throat: NL Teeth, Lips, Gums, - - dry muzoca Neck: NL Appearance and Movements; NL JVP Respiratory: - - rhonchi -diffuse b/l lungs Cardiovascular: NL Sounds; No Murmurs; No JVD, - - irregular Abdominal: NL Sounds; No Tenderness; No Distention Lymphatic: No Cervical Adenopathy Extremities: No Clubbing, Cyanosis, - - trace left aknle edema Skin: No Rash or Ulcers, No Nodules or Sclerosis Neurological: - - b/l LE's at 3+/5, L UE 4/5, speech clear Result Diagrams: 04/28/17 08:19 04/28/17 07:02 Microbiology and Other Data: Microbiology 04/27/17 06:50 Stool Occult Blood (JENNIFER) - Final Stool 04/27/17 01:30 Gastric Occult Blood - Final Gastric Fluid Assess/Plan/Problems-Billing Assessment: 86 yo F with h/o cerebral palsy/COPD/seizures/HTN presented with resp distress and A. fib - Patient Problems (1) Acute hypoxemic respiratory failure Comment: due to aspiration pneumonia. today worsening in respiratory status is likley due to fluid overload. will restart PO Lasix, check daily weights and tx with a dose of IV Lasix. cont Zosyn/Azithro suspect pt aspirated when vomiting. Bedside swallow passed on 04/27/17. (2) Aspiration pneumonia Comment: tx as above (3) Hemoptysis Comment: appears to have resolved will dc/ Protoninx gtt, start Prilosec BID F/u H&H-stable stop Fe sulfate supplementation(could be irritating)-for now It is possible that pt bled from Elisa Lamas tear. Due to respiratory status , EGD would not be well tolerated. Will cont PPI and tx conservatively,f/u H& H. (4) Atrial fibrillation Comment: new, rate controlled. Heparin gtt stopped due to GI bleed cont telem (5) COPD (chronic obstructive pulmonary disease) Comment: with mild exacerbation cont solu Medrol. cont nebs (6) Elevated INR Comment: due to inadequate nutrition corrected with Vit K administration (7) DNR (do not resuscitate) Comment: spoke with son Gregorio on 04/27/17, who confirmed DNR, but OK for intubation (8) Elevated troponin Comment: peaked at 0.11-suspect demand ischemia She has had a chronically elevated troponin. Echo shows severe pulm HTN(worse than prior) and EF 60% (9) Toxic metabolic encephalopathy Comment: due to ongoing infection so far no improvement. As per d/w son , pt has had problems with memory and disorientation in the past several weeks. (10) Abnormal urinalysis Comment: urine cx positive for proteus mirabilis 75 000 [place] placed on 04/27/17 when UA was obtained suspect UTI cont current Zosyn (11) Hypokalemia Comment: - Continue to replete IV (12) DVT prophylaxis Comment: SCD's ,anticoagulants contraindicated due to hematemesis noted at admission Status and Disposition: inpatient
[2017-04-28] MEDS: KCL 20 MEQ/100 ML IVPREMIX* 20 MEQ/100 ML BAG IV SCH ×3 (15:42→20:41)
[2017-04-28] MEDS: traMADol TAB* 50 MG PO SCH (18:12)
[2017-04-28] MEDS: Phenytoin CAP(*) 100 MG CAP.ER PO SCH (20:57)
[2017-04-28] MEDS: Azithromycin IV(*) 500 MG in NS 0.9% 250 ML* 250 ML IVPB SCH (22:37)
[2017-04-29] MEDS: Ondansetron INJ* 2 MG/ML VIAL IV PRN ×2 (00:14→10:43)
[2017-04-29] MEDS: Albuterol/Ipratropium NEB.SOL* Albuterol 2.5 MG/Ipratropium 0.5 MG 3 ML INH SCH ×4 (01:27→20:49)
[2017-04-29] MEDS: Piperac/Tazob 3.375 gm in NS* 3.375 GM in PREMIX* 0 ML IVPB SCH ×6 (01:57→17:16)
[2017-04-29 06:47] LABS: Hematocrit 30 % (35-47); Hemoglobin 9.8 g/dl (12.0-16.0); Mean Corpuscular HGB Conc 33 g/dl (31-36); Mean Corpuscular Hemoglobin 31 pg (27-31); Mean Corpuscular Volume 94 fL (80-97); Mean Platelet Volume 7 um3 (7.4-10.4); Red Blood Count 3.16 10^6/ul (4.0-5.4); Red Cell Distribution Width 15 % (10.5-15); White Blood Count 12.2 10^3/ul (3.5-10.8)
[2017-04-29 06:50] LABS: Add Diff/Slide Review? Slide Review Added; Comments Flag Yes
[2017-04-29 07:06] LABS: BUN/Creatinine Ratio 15.6 (8-20); Calcium 8.4 mg/dL (8.6-10.3); EGFR African American 71.2 (>60); EGFR Non-African American 55.4 (>60); Magnesium 1.9 mg/dL (1.9-2.7); Potassium 3.3 mmol/L (3.5-5.0)
[2017-04-29 07:22] LABS: Hypochromasia 1+; Immature Granulocytes 4 % (0-9); Metamyelocytes % 2 % (0-2); Myelocytes % 2 % (0-1); Neutrophil % 81 % (38-83)
[2017-04-29] MEDS: KCL 20 MEQ/100 ML IVPREMIX* 20 MEQ/100 ML BAG IV SCH ×3 (08:14→12:40)
[2017-04-29] MEDS: methylPREDNISolone SOD 40 MG* 1 ML VIAL IV SCH ×2 (08:19→21:04)
[2017-04-29] MEDS: amLODIPine TAB* 5 MG PO SCH (08:23)
[2017-04-29] MEDS: Docusate CAP* 100 MG PO SCH ×2 (08:23→21:07)
[2017-04-29] MEDS: Senna TAB PO SCH ×2 (08:23→21:07)
[2017-04-29] MEDS: Furosemide TAB* 20 MG PO SCH (08:23)
[2017-04-29] MEDS: Omeprazole CAP* 20 MG PO SCH ×2 (08:23→21:08)
[2017-04-29] MEDS: Nitroglycerin 2% OINT* 1 GM PAK TOPICAL SCH ×2 (08:24→16:14)
[2017-04-29] MEDS: lamoTRIgine TAB(*) 100 MG PO SCH ×2 (08:24→21:09)
[2017-04-29] MEDS: Aspirin Low Dose CHEW TAB* 81 MG PO SCH (08:24)
[2017-04-29] MEDS: Mometasone/Formoter 200/5 MDI INH SCH ×2 (08:30→20:51)
[2017-04-29] MEDS: Metoclopramide IV* 5 MG/ML 2 ML VIAL IV SCH ×2 (12:42→16:14)
--- NOTE | 2017-04-29 14:43 | PN ---
Subjective Date of Service: 04/29/17 Interval History: pt appeared better today. Needed help eating breakfast and drunk a lot of liquids without problems and had scrambled eggs. Subsequently regurgitated all the food. No c/o abd pain or nausea Objective Active Medications: Acetaminophen (Tylenol Tab*) 650 mg PO Q4H PRN PRN Reason: FEVER/PAIN Albuterol (Ventolin 2.5 Mg/3 Ml Neb.María*) 2.5 mg INH Q2H PRN PRN Reason: SOB/WHEEZING Last Admin: 04/28/17 21:25 Dose: 2.5 mg Albuterol/Ipratropium (Duoneb (Albuterol 2.5 Mg/Ipratropium 0.5 Mg)) 1 neb INH [id number] AWAKE [facility] Last Admin: 04/29/17 13:32 Dose: 1 neb Amlodipine Besylate (Norvasc Tab*) 5 mg PO DAILY [facility] Last Admin: 04/29/17 08:23 Dose: 5 mg Aspirin (Aspirin Low Dose Tab*) 81 mg PO DAILY [facility] Last Admin: 04/29/17 08:24 Dose: 81 mg Docusate Sodium (Colace Cap*) 200 mg PO BID [facility] Last Admin: 04/29/17 08:23 Dose: 200 mg Furosemide (Lasix Tab*) 20 mg PO DAILY [facility] Last Admin: 04/29/17 08:23 Dose: 20 mg Hydralazine HCl (Apresoline Iv*) 10 mg IV SLOW PU Q4H PRN PRN Reason: BLOOD PRESSURE Last Admin: 04/28/17 01:11 Dose: 10 mg Azithromycin 500 mg/ Sodium (Chloride) 250 mls @ 250 mls/hr IVPB Q24H [facility] Last Admin: 04/28/17 22:37 Dose: 250 mls/hr Piperacillin Sod/Tazobactam (Sod 3.375 gm/ IV Solution) 115 mls @ 28.75 mls/hr IVPB Q8H [facility] Last Admin: 04/29/17 11:31 Dose: 28.75 mls/hr Lamotrigine (Lamictal Tab(*)) 250 mg PO QAM [facility] Last Admin: 04/29/17 08:24 Dose: 250 mg Lamotrigine (Lamictal Tab(*)) 500 mg PO BEDTIME [facility] Last Admin: 04/28/17 20:57 Dose: 500 mg Methylprednisolone Sodium Succinate (Solu-Medrol 40 Mg) 40 mg IV Q12H [facility] Last Admin: 04/29/17 08:19 Dose: 40 mg Metoclopramide HCl (Reglan Iv*) 5 mg IV AC [facility] Last Admin: 04/29/17 12:42 Dose: 5 mg Mometasone Furoate/Formoterol Fumar (Dulera 200/5 Mdi*) 2 puff INH BID [facility] Last Admin: 04/29/17 08:30 Dose: 2 puff Nitroglycerin (Nitroglycerin 2% Oint*) 1 inch TOPICAL Q8H [facility] Last Admin: 04/29/17 08:24 Dose: 1 inch Omeprazole (Prilosec Cap*) 20 mg PO BID [facility] Last Admin: 04/29/17 08:23 Dose: 20 mg Ondansetron HCl (Zofran Inj*) 4 mg IV Q6H PRN PRN Reason: NAUSEA Last Admin: 04/29/17 10:43 Dose: 4 mg Phenytoin Sodium (Dilantin Cap(*)) 200 mg PO BEDTIME [facility] Last Admin: 04/28/17 20:57 Dose: 200 mg Senna (Senokot Tab*) 2 tab PO BID [facility] Last Admin: 04/29/17 08:23 Dose: 2 tab Tramadol HCl (Ultram*) 50 mg PO DAILY@1700 [facility] Last Admin: 04/28/17 18:12 Dose: Not Given Vital Signs 04/28/17 04/28/17 04/28/17 15:41 18:24 19:25 Temperature 97.5 F 98.6 F Pulse Rate 60 78 Respiratory 18 22 22 Rate Blood Pressure 158/52 142/58 (mmHg) O2 Sat by Pulse 98 97 Oximetry 04/29/17 04/29/17 04/29/17 00:03 00:25 01:52 Temperature 97.7 F Pulse Rate 76 80 Respiratory 26 32 28 Rate Blood Pressure 157/86 (mmHg) O2 Sat by Pulse 96 98 Oximetry 04/29/17 04/29/17 04/29/17 04:52 05:40 08:00 Temperature 97.7 F Pulse Rate 79 Respiratory 20 24 Rate Blood Pressure 180/68 148/83 (mmHg) O2 Sat by Pulse 98 Oximetry 04/29/17 04/29/17 04/29/17 08:11 08:33 08:39 Temperature Pulse Rate 72 79 79 Respiratory 20 18 16 Rate Blood Pressure 154/76 (mmHg) O2 Sat by Pulse 99 97 97 Oximetry 04/29/17 04/29/17 11:41 13:33 Temperature 99.1 F Pulse Rate 90 95 Respiratory 22 18 Rate Blood Pressure 161/75 (mmHg) O2 Sat by Pulse 98 99 Oximetry Oxygen Devices in Use Now: Nasal Cannula - at 2 L Appearance: 86 yo F in nAD, oriented to self only, pleasant and conversational Eyes: No Scleral Icterus, PERRLA Ears/Nose/Mouth/Throat: NL Teeth, Lips, Gums, Mucous Membranes Moist Neck: NL Appearance and Movements; NL JVP, Trachea Midline Respiratory: Symmetrical Chest Expansion and Respiratory Effort, - - corase breath sounds and b/l upper lung rhonchi Cardiovascular: NL Sounds; No Murmurs; No JVD, - - irregular Abdominal: NL Sounds; No Tenderness; No Distention, No Hepatosplenomegaly Lymphatic: No Cervical Adenopathy Extremities: No Clubbing, Cyanosis, - - trace pedal edema R>L Neurological: - - speech clear , chronic b/l LE's and L UE weakness Result Diagrams: 04/29/17 06:28 04/29/17 06:28 Microbiology and Other Data: Microbiology 04/27/17 06:50 Stool Occult Blood (JENNIFER) - Final Stool 04/27/17 01:30 Gastric Occult Blood - Final Gastric Fluid Assess/Plan/Problems-Billing Assessment: 86 yo F with h/o cerebral palsy/COPD/seizures/HTN presented with resp distress and A. fib - Patient Problems (1) Acute hypoxemic respiratory failure Comment: due to aspiration pneumonia. cont Zosyn/Azithro suspect pt aspirated when vomiting. Bedside swallow passed on 04/27/17. due to continuation of vomiting will restart clears diet. Obtain barium swallow in aM Start Reglan AC for possible gastroparesis (2) Aspiration pneumonia Comment: tx as above (3) Hemoptysis Comment: resolved at admissiom cont Prilosec BID F/u H&H-stable stop Fe sulfate supplementation(could be irritating)-for now It is possible that pt bled from Elisa Lamas tear. Due to respiratory status , EGD would not be well tolerated. Will cont PPI and tx conservatively,f/u H& H. (4) Atrial fibrillation Comment: new, rate controlled. Heparin gtt stopped due to GI bleed cont telem (5) COPD (chronic obstructive pulmonary disease) Comment: with mild exacerbation cont solu Medrol. cont nebs (6) Elevated INR Comment: due to inadequate nutrition corrected with Vit K administration (7) DNR (do not resuscitate) Comment: spoke with son Gregorio on 04/27/17, who confirmed DNR, but OK for intubation (8) Elevated troponin Comment: peaked at 0.11-suspect demand ischemia She has had a chronically elevated troponin. Echo shows severe pulm HTN(worse than prior) and EF 60% (9) Toxic metabolic encephalopathy Comment: due to ongoing infection so far no improvement. As per d/w son , pt has had problems with memory and disorientation in the past several weeks. (10) Abnormal urinalysis Comment: urine cx positive for proteus mirabilis 75 000 [place] placed on 04/27/17 when UA was obtained suspect UTI cont current Zosyn (11) Hypokalemia Comment: - Continue to replete IV (12) Seizure disorder Comment: Continue phenytoin and lamictal. (13) SBO (small bowel obstruction) Comment: h/o SBO in the past will obtain XRays to eval CT at admission shows "redundant dilated colon" (14) DVT prophylaxis Comment: SCD's ,anticoagulants contraindicated due to hematemesis noted at admission Status and Disposition: inpatient. pt is a resident of [facility]
[2017-04-29] MEDS ORDERED: Furosemide IV* 10 MG/ML 2 ML VIAL (20 MG) IV ONE (14:44)
[2017-04-29] MEDS ORDERED: Bisacodyl SUPP* 10 MG SUPP PR ONE (14:47)
--- NOTE | 2017-04-29 16:00 | RAD ---
INDICATION: Small bowel obstruction COMPARISON: CT April 26, 2017 TECHNIQUE: Erect and supine views of the abdomen are submitted. FINDINGS: Bones: There are no acute bony findings. Soft tissues: The soft tissues appear normal. The psoas margins are sharp. Bowel gas pattern: Is nonspecific. There is air within the colon with residual CT contrast within the right colon. There is a paucity of gas in distal colon. There are several air-filled loops of small bowel in left abdomen but these are not dilated. Calcifications: There are no abnormal calcifications. Other: None IMPRESSION: NONSPECIFIC BOWEL GAS PATTERN.
[2017-04-29] MEDS: traMADol TAB* 50 MG PO SCH (17:38)
[2017-04-29] MEDS: Phenytoin CAP(*) 100 MG CAP.ER PO SCH (21:11)
[2017-04-29] MEDS: Azithromycin IV(*) 500 MG in NS 0.9% 250 ML* 250 ML IVPB SCH (21:18)
[2017-04-30] MEDS: Nitroglycerin 2% OINT* 1 GM PAK TOPICAL SCH ×2 (00:12→07:51)
[2017-04-30] MEDS: Piperac/Tazob 3.375 gm in NS* 3.375 GM in PREMIX* 0 ML IVPB SCH ×6 (01:59→16:29)
[2017-04-30] MEDS: Albuterol/Ipratropium NEB.SOL* Albuterol 2.5 MG/Ipratropium 0.5 MG 3 ML INH SCH ×4 (02:43→20:16)
[2017-04-30] MEDS: Furosemide TAB* 20 MG PO SCH (07:48)
[2017-04-30] MEDS: Docusate CAP* 100 MG PO SCH ×2 (07:48→21:08)
[2017-04-30] MEDS: Omeprazole CAP* 20 MG PO SCH ×2 (07:49→21:08)
[2017-04-30] MEDS: lamoTRIgine TAB(*) 100 MG PO SCH ×2 (07:49→21:08)
[2017-04-30] MEDS: Aspirin Low Dose CHEW TAB* 81 MG PO SCH (07:50)
[2017-04-30] MEDS: Senna TAB PO SCH ×2 (07:50→21:08)
[2017-04-30] MEDS: Metoclopramide IV* 5 MG/ML 2 ML VIAL IV SCH ×3 (07:55→15:23)
[2017-04-30] MEDS: Mometasone/Formoter 200/5 MDI INH SCH ×2 (08:25→20:17)
[2017-04-30] MEDS: methylPREDNISolone SOD 40 MG* 1 ML VIAL IV SCH ×2 (08:36→21:05)
[2017-04-30] MEDS: amLODIPine TAB* 5 MG PO SCH (08:36)
[2017-04-30 09:27] LABS: BUN/Creatinine Ratio 12.6 (8-20); Calcium 8.4 mg/dL (8.6-10.3); EGFR African American 65.7 (>60); EGFR Non-African American 51.1 (>60); Potassium 3.5 mmol/L (3.5-5.0)
--- NOTE | 2017-04-30 12:16 | PN ---
Subjective Date of Service: 04/30/17 Interval History: pt seems to have improved today. Dyspcne is better. C/o no pain , oriented to place Objective Active Medications: Acetaminophen (Tylenol Tab*) 650 mg PO Q4H PRN PRN Reason: FEVER/PAIN Albuterol (Ventolin 2.5 Mg/3 Ml Neb.María*) 2.5 mg INH Q2H PRN PRN Reason: SOB/WHEEZING Last Admin: 04/28/17 21:25 Dose: 2.5 mg Albuterol/Ipratropium (Duoneb (Albuterol 2.5 Mg/Ipratropium 0.5 Mg)) 1 neb INH [id number] AWAKE [facility] Last Admin: 04/30/17 08:25 Dose: 1 neb Amlodipine Besylate (Norvasc Tab*) 10 mg PO DAILY [facility] Last Admin: 04/30/17 08:36 Dose: 10 mg Aspirin (Aspirin Low Dose Tab*) 81 mg PO DAILY [facility] Last Admin: 04/30/17 07:50 Dose: 81 mg Docusate Sodium (Colace Cap*) 200 mg PO BID [facility] Last Admin: 04/30/17 07:48 Dose: 200 mg Furosemide (Lasix Tab*) 20 mg PO DAILY [facility] Last Admin: 04/30/17 07:48 Dose: 20 mg Hydralazine HCl (Apresoline Iv*) 10 mg IV SLOW PU Q4H PRN PRN Reason: BLOOD PRESSURE Last Admin: 04/28/17 01:11 Dose: 10 mg Azithromycin 500 mg/ Sodium (Chloride) 250 mls @ 250 mls/hr IVPB Q24H [facility] Last Admin: 04/29/17 21:18 Dose: 250 mls/hr Piperacillin Sod/Tazobactam (Sod 3.375 gm/ IV Solution) 115 mls @ 28.75 mls/hr IVPB Q8H [facility] Last Admin: 04/30/17 09:53 Dose: 28.75 mls/hr Lamotrigine (Lamictal Tab(*)) 250 mg PO QAM [facility] Last Admin: 04/30/17 07:49 Dose: 250 mg Lamotrigine (Lamictal Tab(*)) 500 mg PO BEDTIME [facility] Last Admin: 04/29/17 21:09 Dose: 500 mg Methylprednisolone Sodium Succinate (Solu-Medrol 40 Mg) 40 mg IV Q12H [facility] Last Admin: 04/30/17 08:36 Dose: 40 mg Metoclopramide HCl (Reglan Iv*) 5 mg IV AC [facility] Last Admin: 04/30/17 10:19 Dose: 5 mg Mometasone Furoate/Formoterol Fumar (Dulera 200/5 Mdi*) 2 puff INH BID [facility] Last Admin: 04/30/17 08:25 Dose: 2 puff Omeprazole (Prilosec Cap*) 20 mg PO BID [facility] Last Admin: 04/30/17 07:49 Dose: 20 mg Ondansetron HCl (Zofran Inj*) 4 mg IV Q6H PRN PRN Reason: NAUSEA Last Admin: 04/29/17 10:43 Dose: 4 mg Phenytoin Sodium (Dilantin Cap(*)) 200 mg PO BEDTIME [facility] Last Admin: 04/29/17 21:11 Dose: 200 mg Senna (Senokot Tab*) 2 tab PO BID [facility] Last Admin: 04/30/17 07:50 Dose: 2 tab Tramadol HCl (Ultram*) 50 mg PO DAILY@1700 [facility] Last Admin: 04/29/17 17:38 Dose: Not Given Vital Signs 04/29/17 04/29/17 04/29/17 13:33 16:23 20:00 Temperature 97.7 F Pulse Rate 95 79 Respiratory 18 20 20 Rate Blood Pressure 137/60 (mmHg) O2 Sat by Pulse 99 98 Oximetry 04/29/17 04/29/17 04/30/17 20:47 20:53 00:11 Temperature 98.4 F 98.4 F Pulse Rate 78 74 107 Respiratory 18 20 24 Rate Blood Pressure 153/52 164/59 (mmHg) O2 Sat by Pulse 96 95 97 Oximetry 04/30/17 04/30/17 04/30/17 05:02 06:41 07:23 Temperature 98.2 F 98.0 F Pulse Rate 95 97 Respiratory 20 18 20 Rate Blood Pressure 156/52 179/61 (mmHg) O2 Sat by Pulse 92 90 Oximetry 04/30/17 08:25 Temperature Pulse Rate 99 Respiratory 95 Rate Blood Pressure (mmHg) O2 Sat by Pulse 95 Oximetry Oxygen Devices in Use Now: Nasal Cannula - at 2 L Appearance: 86 yo F in nAD, aAOx2 Eyes: No Scleral Icterus, PERRLA Ears/Nose/Mouth/Throat: NL Teeth, Lips, Gums, Mucous Membranes Moist Neck: NL Appearance and Movements; NL JVP, Trachea Midline Respiratory: Symmetrical Chest Expansion and Respiratory Effort, - - rhonchi at RLL, crackles at LLL Cardiovascular: - - irregular Abdominal: NL Sounds; No Tenderness; No Distention, No Hepatosplenomegaly Extremities: No Clubbing, Cyanosis, - - B/l pedal edema +2 Skin: No Nodules or Sclerosis, - - scarred area on sacrum with stage 3 small decub areas in the area of scarring (was present first day after admission) Neurological: - - B/l LE's-able to move toes only, LUE at 3+/5, RUE at 4+/5, speech clear Result Diagrams: 04/29/17 06:28 04/30/17 08:30 Microbiology and Other Data: Microbiology 04/27/17 06:50 Stool Occult Blood (JENNIFER) - Final Stool 04/27/17 01:30 Gastric Occult Blood - Final Gastric Fluid Assess/Plan/Problems-Billing Assessment: 86 yo F with h/o cerebral palsy/COPD/seizures/HTN presented with resp distress and A. fib - Patient Problems (1) Acute hypoxemic respiratory failure Comment: due to aspiration pneumonia. cont Zosyn/Azithro suspect pt aspirated when vomiting prior to admission. Bedside swallow passed on 04/27/17. due to continuation of vomiting cont clear diet. Obtain barium swallow today Started Reglan AC for possible gastroparesis (2) Aspiration pneumonia Comment: tx as above (3) Hemoptysis Comment: resolved at admissiom cont Prilosec BID F/u H&H-stable stop Fe sulfate supplementation(could be irritating)-for now It is possible that pt bled from Elisa Lamas tear. Due to respiratory status , EGD would not be well tolerated. Will cont PPI and tx conservatively,f/u H& H. (4) Atrial fibrillation Comment: new, rate controlled. Heparin gtt stopped due to GI bleed on first day of hopsital stay cont telem (5) COPD (chronic obstructive pulmonary disease) Comment: with mild exacerbation cont solu Medrol. cont nebs (6) Elevated INR Comment: due to inadequate nutrition corrected with Vit K administration (7) DNR (do not resuscitate) Comment: spoke with son Gregorio on 04/27/17, who confirmed DNR, but OK for intubation (8) Elevated troponin Comment: peaked at 0.11-suspect demand ischemia She has had a chronically elevated troponin. Echo shows severe pulm HTN(worse than prior) and EF 60% (9) Toxic metabolic encephalopathy Comment: due to infection, with slight improvement today. As per d/w son , pt has had problems with memory and disorientation in the past several weeks. (10) Abnormal urinalysis Comment: urine cx positive for proteus mirabilis 75 000 [place] placed on 04/27/17 when UA was obtained suspect UTI cont current Zosyn (11) Hypokalemia Comment: repleted (12) Seizure disorder Comment: Continue phenytoin and lamictal. (13) SBO (small bowel obstruction) Comment: h/o SBO in the past pt stated that she passes flatus. XRays show no SBO CT at admission shows "redundant dilated colon" (14) DVT prophylaxis Comment: SCD's ,anticoagulants contraindicated due to hematemesis noted at admission Status and Disposition: inpatient. pt is a resident of [facility]
--- NOTE | 2017-04-30 12:34 | RAD ---
CPT II Codes: 6045F INDICATION: Vomiting, dysphagia. Fluoroscopic examination of the oral and pharyngeal phases of deglutition was performed speech pathology. 2.5 minutes of fluoroscopy time was used. A variety of consistencies of contrast material was used. There is good oral control with prompt delivery of the contrast bolus to the pharynx. Pharyngeal phase demonstrates minimal delay with some minimal residual in the vallecula which appears to clear upon repeat swallowing. No gross penetration or aspiration is noted. IMPRESSION: Some minimal residual is noted in the valleculae. No penetration or aspiration is noted. Please see speech pathology recommendations.
[2017-04-30 12:35] LABS: Add Diff/Slide Review? Slide Review Added; Comments Flag Yes; Hematocrit 29 % (35-47); Hemoglobin 9.6 g/dl (12.0-16.0); Mean Corpuscular HGB Conc 33 g/dl (31-36); Mean Corpuscular Hemoglobin 31 pg (27-31); Mean Corpuscular Volume 92 fL (80-97); Mean Platelet Volume 7 um3 (7.4-10.4); Red Blood Count 3.17 10^6/ul (4.0-5.4); Red Cell Distribution Width 15 % (10.5-15); White Blood Count 10.7 10^3/ul (3.5-10.8)
[2017-04-30] MEDS: traMADol TAB* 50 MG PO SCH (16:02)
[2017-04-30] MEDS: Azithromycin IV(*) 500 MG in NS 0.9% 250 ML* 250 ML IVPB SCH (21:04)
[2017-04-30] MEDS: Phenytoin CAP(*) 100 MG CAP.ER PO SCH (21:08)
[2017-05-01] MEDS: Albuterol/Ipratropium NEB.SOL* Albuterol 2.5 MG/Ipratropium 0.5 MG 3 ML INH SCH ×4 (01:00→20:08)
[2017-05-01] MEDS: Piperac/Tazob 3.375 gm in NS* 3.375 GM in PREMIX* 0 ML IVPB SCH ×6 (02:10→17:07)
[2017-05-01] MEDS: hydrALAZINE IV* 20 MG/ML VIAL IV SLOW PU PRN (04:44)
[2017-05-01] MEDS: methylPREDNISolone SOD 40 MG* 1 ML VIAL IV SCH ×2 (07:20→22:12)
[2017-05-01] MEDS: Senna TAB PO SCH ×2 (07:20→20:49)
[2017-05-01] MEDS: Metoclopramide IV* 5 MG/ML 2 ML VIAL IV SCH ×3 (07:20→17:07)
[2017-05-01] MEDS: amLODIPine TAB* 5 MG PO SCH (07:20)
[2017-05-01] MEDS: Aspirin Low Dose CHEW TAB* 81 MG PO SCH (07:20)
[2017-05-01] MEDS: lamoTRIgine TAB(*) 100 MG PO SCH ×2 (07:20→20:46)
[2017-05-01] MEDS: Furosemide TAB* 20 MG PO SCH (07:21)
[2017-05-01] MEDS: Docusate CAP* 100 MG PO SCH ×2 (07:21→20:51)
[2017-05-01] MEDS: Omeprazole CAP* 20 MG PO SCH ×2 (07:21→20:48)
[2017-05-01] MEDS: Mometasone/Formoter 200/5 MDI INH SCH ×2 (07:50→20:08)
[2017-05-01] MEDS: Ondansetron INJ* 2 MG/ML VIAL IV PRN (10:04)
--- NOTE | 2017-05-01 10:19 | PN ---
Subjective Date of Service: 05/01/17 Interval History: Patient seen this morning, had another episode of vomiting following breakfast, mostly undigested food. As per aides she did well with the food and had a good appetite. Some respiratory distress after, continues on 2L of O2. Denies SOB, pain. Cannot recall any nausea preceding emesis. Family History: Unchanged from Admission Social History: Unchanged from Admission Past Medical History: Unchanged from Admission Objective Active Medications: Acetaminophen (Tylenol Tab*) 650 mg PO Q4H PRN Albuterol (Ventolin 2.5 Mg/3 Ml Neb.María*) 2.5 mg INH Q2H PRN Albuterol/Ipratropium (Duoneb (Albuterol 2.5 Mg/Ipratropium 0.5 Mg)) 1 neb INH [id number] AWAKE MAY Amlodipine Besylate (Norvasc Tab*) 10 mg PO DAILY MAY Aspirin (Aspirin Low Dose Tab*) 81 mg PO DAILY MAY Docusate Sodium (Colace Cap*) 200 mg PO BID MAY Furosemide (Lasix Tab*) 20 mg PO DAILY MAY Hydralazine HCl (Apresoline Iv*) 10 mg IV SLOW PU Q4H PRN Azithromycin 500 mg/ Sodium (Chloride) 250 mls @ 250 mls/hr IVPB Q24H MAY Piperacillin Sod/Tazobactam (Sod 3.375 gm/ IV Solution) 115 mls @ 28.75 mls/hr IVPB Q8H MAY Lamotrigine (Lamictal Tab(*)) 250 mg PO QAM [facility] Lamotrigine (Lamictal Tab(*)) 500 mg PO BEDTIME [facility] Methylprednisolone Sodium Succinate (Solu-Medrol 40 Mg) 40 mg IV Q12H MAY Metoclopramide HCl (Reglan Iv*) 5 mg IV AC MAY Mometasone Furoate/Formoterol Fumar (Dulera 200/5 Mdi*) 2 puff INH BID MAY Omeprazole (Prilosec Cap*) 20 mg PO BID MAY Ondansetron HCl (Zofran Inj*) 4 mg IV Q6H PRN Phenytoin Sodium (Dilantin Cap(*)) 200 mg PO BEDTIME MAY Senna (Senokot Tab*) 2 tab PO BID MAY Tramadol HCl (Ultram*) 50 mg PO DAILY@1700 [facility] Vital Signs 04/30/17 04/30/17 04/30/17 11:41 14:10 15:24 Temperature 98.0 F 97.8 F Pulse Rate 73 77 76 Respiratory 20 16 20 Rate Blood Pressure 160/64 145/65 (mmHg) O2 Sat by Pulse 93 94 97 Oximetry 05/01/17 05/01/17 05/01/17 07:51 08:00 08:06 Temperature 97.5 F Pulse Rate 101 87 Respiratory 24 20 26 Rate Blood Pressure 156/60 (mmHg) O2 Sat by Pulse 98 97 Oximetry Oxygen Devices in Use Now: Nasal Cannula - at 2 L Appearance: Elderly, F, laying in bed in NAD Eyes: No Scleral Icterus Ears/Nose/Mouth/Throat: Mucous Membranes Moist Neck: NL Appearance and Movements; NL JVP Respiratory: Symmetrical Chest Expansion and Respiratory Effort, - - Some coarse rales scattered throughout both lung davidson Cardiovascular: - - IRIR Abdominal: NL Sounds; No Tenderness; No Distention Lymphatic: No Cervical Adenopathy Extremities: - - Pedal edema B/L Skin: No Rash or Ulcers Neurological: - - Slightly lethargic, responds to voice Result Diagrams: 04/30/17 12:25 04/30/17 08:30 Microbiology and Other Data: Microbiology 04/27/17 06:50 Stool Occult Blood (JENNIFER) - Final Stool 04/27/17 01:30 Gastric Occult Blood - Final Gastric Fluid Assess/Plan/Problems-Billing Assessment: 86 yo F with h/o cerebral palsy/COPD/seizures/HTN presented with resp distress likely 2/2 aspiration PNA and A. fib - Patient Problems (1) Acute hypoxemic respiratory failure Current Visit: Yes Comment: due to aspiration pneumonia. cont Zosyn, will stop Azithromycin suspect pt aspirated when vomiting prior to admission. Bedside swallow passed on 04/27/17. due to continuation of vomiting cont clear diet Continue reglan AC for possible gastroparesis (2) Aspiration pneumonia Current Visit: Yes Comment: tx as above (3) Nausea & vomiting Current Visit: Yes Comment: Concerned this may be mechanical issue. Video swallowing study was relatively unremarkable but problem could be distal, will get esophagogram. Consider repeat abdominal imaging after. Scale back to clears again for now. (4) Atrial fibrillation Current Visit: Yes Comment: new, rate controlled. Heparin gtt stopped due to GI bleed on first day of hopsital stay cont telem (5) Hemoptysis Current Visit: Yes Comment: resolved at admissiom cont Prilosec BID F/u H&H-stable stop Fe sulfate supplementation(could be irritating)-for now It is possible that pt bled from Elisa Lamas tear. Due to respiratory status , EGD would not be well tolerated. Will cont PPI and tx conservatively,f/u H& H. (6) COPD (chronic obstructive pulmonary disease) Current Visit: No Comment: with mild exacerbation cont solu Medrol. cont nebs (7) Elevated INR Current Visit: Yes Comment: due to inadequate nutrition corrected with Vit K administration (8) Toxic metabolic encephalopathy Current Visit: Yes Comment: due to infection As per d/w son , pt has had problems with memory and disorientation in the past several weeks. (9) Elevated troponin Current Visit: No Comment: peaked at 0.11-suspect demand ischemia She has had a chronically elevated troponin. Echo shows severe pulm HTN(worse than prior) and EF 60% (10) Abnormal urinalysis Current Visit: Yes Comment: urine cx with only 75K CFU of proteus (11) SBO (small bowel obstruction) Current Visit: No Comment: h/o SBO in the past pt stated that she passes flatus. XRays show no SBO CT at admission shows "redundant dilated colon" (12) Seizure disorder Current Visit: No Comment: Continue phenytoin and lamictal. (13) DVT prophylaxis Current Visit: No Comment: SCD's ,anticoagulants contraindicated due to hematemesis noted at admission Status and Disposition: inpatient. pt is a resident of [facility]
[2017-05-01] MEDS: traMADol TAB* 50 MG PO SCH (17:06)
[2017-05-01] MEDS: Phenytoin CAP(*) 100 MG CAP.ER PO SCH (20:43)
[2017-05-02] MEDS: hydrALAZINE IV* 20 MG/ML VIAL IV SLOW PU PRN (01:18)
[2017-05-02] MEDS: Piperac/Tazob 3.375 gm in NS* 3.375 GM in PREMIX* 0 ML IVPB SCH ×2 (02:09)
[2017-05-02] MEDS: Albuterol/Ipratropium NEB.SOL* Albuterol 2.5 MG/Ipratropium 0.5 MG 3 ML INH SCH ×5 (02:10→19:50)
[2017-05-02 06:13] LABS: BUN/Creatinine Ratio 12.1 (8-20); Calcium 8.9 mg/dL (8.6-10.3); EGFR African American 62.8 (>60); EGFR Non-African American 48.9 (>60); Potassium 3.3 mmol/L (3.5-5.0)
[2017-05-02 06:14] LABS: Add Diff/Slide Review? Slide Review Added; Comments Flag Yes; Hematocrit 31 % (35-47); Mean Corpuscular HGB Conc 33 g/dl (31-36); Mean Corpuscular Hemoglobin 31 pg (27-31); Mean Corpuscular Volume 93 fL (80-97); Mean Platelet Volume 8 um3 (7.4-10.4); Red Blood Count 3.29 10^6/ul (4.0-5.4); Red Cell Distribution Width 16 % (10.5-15); White Blood Count 17.1 10^3/ul (3.5-10.8)
[2017-05-02 07:22] LABS: Immature Granulocytes 7 % (0-9); Metamyelocytes % 1 % (0-2); Myelocytes % 2 % (0-1); Neutrophil % 83 % (38-83)
[2017-05-02] MEDS: Metoclopramide IV* 5 MG/ML 2 ML VIAL IV SCH ×3 (07:49→16:29)
[2017-05-02] MEDS: Mometasone/Formoter 200/5 MDI INH SCH ×2 (07:52→19:50)
[2017-05-02] MEDS: Senna TAB PO SCH ×2 (07:53→21:01)
[2017-05-02] MEDS: Docusate CAP* 100 MG PO SCH ×2 (07:53→21:01)
[2017-05-02] MEDS: Potassium Chlor TAB* 20 MEQ TAB.ER PO SCH ×2 (09:13→11:38)
[2017-05-02] MEDS: amLODIPine TAB* 5 MG PO SCH (09:14)
[2017-05-02] MEDS: lamoTRIgine TAB(*) 100 MG PO SCH ×2 (09:14→21:04)
[2017-05-02] MEDS: Omeprazole CAP* 20 MG PO SCH (09:14)
[2017-05-02] MEDS: Aspirin Low Dose CHEW TAB* 81 MG PO SCH (09:15)
[2017-05-02] MEDS: Furosemide TAB* 20 MG PO SCH (09:15)
[2017-05-02] MEDS: methylPREDNISolone SOD 40 MG* 1 ML VIAL IV SCH (09:16)
--- NOTE | 2017-05-02 09:26 | PN ---
Subjective Date of Service: 05/02/17 Interval History: Yesterday patient refused imaging. Patient seen this morning. Awake and alert although remains confused as to where she is. Denies any SOB or chest pain. Surprised she is in the hospital. Denies fever or chills. Agreeable to imaging study today. Family History: Unchanged from Admission Social History: Unchanged from Admission Past Medical History: Unchanged from Admission Objective Active Medications: Acetaminophen (Tylenol Tab*) 650 mg PO Q4H PRN PRN Reason: FEVER/PAIN Albuterol (Ventolin 2.5 Mg/3 Ml Neb.María*) 2.5 mg INH Q2H PRN PRN Reason: SOB/WHEEZING Last Admin: 04/28/17 21:25 Dose: 2.5 mg Albuterol/Ipratropium (Duoneb (Albuterol 2.5 Mg/Ipratropium 0.5 Mg)) 1 neb INH [id number] AWAKE [facility] Last Admin: 05/02/17 07:51 Dose: 1 neb Amlodipine Besylate (Norvasc Tab*) 10 mg PO DAILY [facility] Last Admin: 05/02/17 09:14 Dose: 10 mg Aspirin (Aspirin Low Dose Tab*) 81 mg PO DAILY [facility] Last Admin: 05/02/17 09:15 Dose: 81 mg Docusate Sodium (Colace Cap*) 200 mg PO BID [facility] Last Admin: 05/02/17 07:53 Dose: Not Given Furosemide (Lasix Tab*) 20 mg PO DAILY [facility] Last Admin: 05/02/17 09:15 Dose: 20 mg Hydralazine HCl (Apresoline Iv*) 10 mg IV SLOW PU Q4H PRN PRN Reason: BLOOD PRESSURE Last Admin: 05/02/17 01:18 Dose: 10 mg Piperacillin Sod/Tazobactam (Sod 3.375 gm/ Sodium Chloride) 100 mls @ 25 mls/ hr IVPB Q8H [facility] Last Admin: 05/02/17 09:13 Dose: 25 mls/hr Lactulose (Lactulose*) 30 ml PO TID [facility] Last Admin: 05/02/17 09:15 Dose: 30 ml Lamotrigine (Lamictal Tab(*)) 250 mg PO QAM [facility] Last Admin: 05/02/17 09:14 Dose: 250 mg Lamotrigine (Lamictal Tab(*)) 500 mg PO BEDTIME [facility] Last Admin: 05/01/17 20:46 Dose: 500 mg Methylprednisolone Sodium Succinate (Solu-Medrol 40 Mg) 40 mg IV Q12H [facility] Last Admin: 05/01/17 22:12 Dose: 40 mg Metoclopramide HCl (Reglan Iv*) 5 mg IV AC [facility] Last Admin: 05/02/17 07:49 Dose: 5 mg Mometasone Furoate/Formoterol Fumar (Dulera 200/5 Mdi*) 2 puff INH BID [facility] Last Admin: 05/02/17 07:52 Dose: 2 puff Omeprazole (Prilosec Cap*) 20 mg PO BID [facility] Last Admin: 05/02/17 09:14 Dose: 20 mg Ondansetron HCl (Zofran Inj*) 4 mg IV Q6H PRN PRN Reason: NAUSEA Last Admin: 05/01/17 10:04 Dose: 4 mg Phenytoin Sodium (Dilantin Cap(*)) 200 mg PO BEDTIME [facility] Last Admin: 05/01/17 20:43 Dose: 200 mg Potassium Chloride (Klor Con Er Tab*) 40 meq PO Q2H [facility] Stop: 05/02/17 11:01 Last Admin: 05/02/17 09:13 Dose: 40 meq Senna (Senokot Tab*) 2 tab PO BID [facility] Last Admin: 05/02/17 07:53 Dose: Not Given Tramadol HCl (Ultram*) 50 mg PO DAILY@1700 [facility] Last Admin: 05/01/17 17:06 Dose: 50 mg Vital Signs 05/01/17 05/01/17 05/01/17 11:35 13:29 15:47 Temperature 97.6 F 97.6 F Pulse Rate 71 77 73 Respiratory 24 16 18 Rate Blood Pressure 142/64 (mmHg) O2 Sat by Pulse 95 100 100 Oximetry 05/02/17 07:57 Temperature 97.7 F Pulse Rate 77 Respiratory 28 Rate Blood Pressure 150/51 (mmHg) O2 Sat by Pulse 99 Oximetry Oxygen Devices in Use Now: Nasal Cannula - at 2 L Appearance: Elderly, F, laying in bed in NAD Eyes: No Scleral Icterus Ears/Nose/Mouth/Throat: - - Dry MM Neck: NL Appearance and Movements; NL JVP Respiratory: Symmetrical Chest Expansion and Respiratory Effort, - - Some coarse BS throughout R lung, difficult to assess left, seem diminished Cardiovascular: NL Sounds; No Murmurs; No JVD - IRIR Abdominal: NL Sounds; No Tenderness; No Distention Lymphatic: No Cervical Adenopathy Extremities: - - B/L pedal edema Skin: No Rash or Ulcers Neurological: - - Alert, oriented to self only Result Diagrams: 05/02/17 05:30 05/02/17 05:30 Microbiology and Other Data: Microbiology 04/27/17 06:50 Stool Occult Blood (JENNIFER) - Final Stool 04/27/17 01:30 Gastric Occult Blood - Final Gastric Fluid Assess/Plan/Problems-Billing Assessment: 86 yo F with h/o cerebral palsy/COPD/seizures/HTN presented with resp distress likely 2/2 aspiration PNA and A. fib - Patient Problems (1) Acute hypoxemic respiratory failure Current Visit: Yes Comment: due to aspiration pneumonia, WBC elevated this AM after likely recurrent aspiration episode yesterday AM cont Zosyn suspect pt aspirated when vomiting prior to admission. Bedside swallow passed on 04/27/17. due to continuation of vomiting cont clear liquid diet for now diet Continue reglan AC for possible gastroparesis (2) Aspiration pneumonia Current Visit: Yes Comment: tx as above (3) Nausea & vomiting Current Visit: Yes Comment: Concerned this may be mechanical issue. Video swallowing study was relatively unremarkable but problem could be distal, will get esophagogram today, patient agreeable. Consider repeat abdominal imaging after. Continue clears for now. (4) Atrial fibrillation Current Visit: Yes Comment: new, rate controlled. Heparin gtt stopped due to GI bleed on first day of hopsital stay cont telem (5) Hemoptysis Current Visit: Yes Comment: resolved at admissiom cont Prilosec BID F/u H&H-stable stop Fe sulfate supplementation(could be irritating)-for now It is possible that pt bled from Elisa Lamas tear. Due to respiratory status , EGD would not be well tolerated. Will cont PPI and tx conservatively,f/u H& H. (6) COPD (chronic obstructive pulmonary disease) Current Visit: No Comment: with mild exacerbation S/P steroids cont nebs (7) Elevated INR Current Visit: Yes Comment: due to inadequate nutrition corrected with Vit K administration (8) Toxic metabolic encephalopathy Current Visit: Yes Comment: due to infection As per d/w son , pt has had problems with memory and disorientation in the past several weeks. (9) Elevated troponin Current Visit: No Comment: peaked at 0.11-suspect demand ischemia She has had a chronically elevated troponin. Echo shows severe pulm HTN(worse than prior) and EF 60% (10) SBO (small bowel obstruction) Current Visit: No Comment: h/o SBO in the past pt stated that she passes flatus. XRays show no SBO CT at admission shows "redundant dilated colon" (11) Seizure disorder Current Visit: No Comment: Continue phenytoin and lamictal. (12) DVT prophylaxis Current Visit: No Comment: SCD's ,anticoagulants contraindicated due to hematemesis noted at admission Status and Disposition: inpatient. pt is a resident of [facility]
--- NOTE | 2017-05-02 14:04 | RAD ---
CPT II Codes: 6045F INDICATION: Recurrent nausea and vomiting. Fluoroscopic and radiographic examination of the esophagus demonstrates no definite obstruction. The patient did have reflux with aspiration. IMPRESSION: No obstruction is noted. Gastroesophageal reflux with aspiration is present.
[2017-05-02] MEDS: traMADol TAB* 50 MG PO SCH (16:29)
[2017-05-02] MEDS: Polyethylene Glycol 3350* 17 GM PACKET PO SCH (21:01)
[2017-05-02] MEDS: Phenytoin CAP(*) 100 MG CAP.ER PO SCH (21:04)
--- NOTE | 2017-05-02 23:40 | CONS ---
CONSULTATION REPORT: DATE OF CONSULT: 05/02/17 REASON FOR CONSULT: Recurrent nausea and vomiting. NARRATIVE: Ms. Jordan is an 86-year-old woman with a history of cerebral palsy, currently resident in a skilled nursing; history of seizures; CVA; COPD. She was admitted a few days ago with probable aspiration pneumonia, which she has had before. She has recovered with IV antibiotics, but upon p.o. challenging, she has had recurrent episodes of nausea and vomiting. At one point, she has had some hematemesis. For that reason, our services were consulted. Her workup has included an abdominal CAT scan on April 26, which I did review showing dilated loops of small bowel and colon consistent with an ileus. This is similar to appearances of previous CAT scans which I have reviewed. She also had a video fluoroscopy study, which showed no evidence of aspiration, and an esophagus x-ray, which showed no esophageal lesion, but did show some free reflux. The patient states that she has a desire to eat, but does regurgitate soon after eating. She has had chronic digestive problems. These have been similar to which she is currently experiencing. Apparently over 20 years ago, she was thought to have small bowel obstruction and by note in the chart, she underwent a small bowel resection. However, she has had more recently recurrent admissions for ileus versus small bowel obstruction, which have been treated conservatively. She also experienced an episode of hematemesis in 2012, which prompted an upper endoscopy showing evidence of erosive esophagitis and a hiatal hernia. She was treated with proton pump inhibitor. She has had previous episodes of pneumonia presumably from aspiration. She describes a chronic history of constipation and has been on products such as MiraLAX and currently is on lactulose and senna and still reports poor bowel function. PAST MEDICAL HISTORY: Again includes cerebral palsy, seizures, CVA, hypertension, COPD, depression, osteoarthritis, and GERD. PAST SURGICAL HISTORY: Includes a total right hip replacement. HOME MEDICINES: 1. Diazepam as needed for seizures. 2. Albuterol. 3. Cozaar. 4. Baby aspirin. 5. Senna. 6. MiraLAX. 7. DuoNeb. 8. Dilantin. 9. Phenytoin. 10. Lamictal. 11. Ranitidine. 12. Ferrous sulfate. 13. Vitamin C. 14. Norvasc. 15. Lasix. 16. Tramadol. REVIEW OF SYSTEMS: The patient denies any rectal bleeding, but she does describe some constipation. She currently is breathing comfortably. She is a rather poor historian. She does, however, admit to a good appetite. PHYSICAL EXAM: General: She is an older woman in bed, looking comfortable, and in no acute distress. Vital Signs: Temperature is 97.8, blood pressure is 167/67, heart rate is 86 and regular. Cardiac Exam: Reveals a regular rhythm. Abdomen: Shows distention with hypoactive bowel sounds, tympany throughout. No succussion splash. No obvious tenderness. Extremities: Reveal edema bilaterally. LABORATORY DATA: Include white count of 17.1, hemoglobin of 10. Normal liver panel. IMPRESSION AND PLAN: Chronically-ill appearing woman with cerebral palsy, cerebrovascular accident, who has had recurrent admissions for colonic pseudo- obstruction, adynamic ileus, who presents with an aspiration pneumonia with imaging and symptoms suggestive of recurrence or progression of her adynamic ileus. The etiology is likely from her immobility, her chronic neurologic disease, and her polypharmacy. Certainly this is a difficult situation to completely rectify. I am going to discontinue her lactulose, which I believe is producing more gas and bloating from fermentation and start her back on MiraLAX twice a day. I am also going to discontinue her oral omeprazole and place her on Protonix intravenous as she may not be absorbing this very well with some superimposed gastroparesis. Small frequent meals should be incorporated in her diet. Further attempts at a better bowel regimen, perhaps with entity such as Amitiza may be thought of. Prokinetics could also be considered, although given her polypharmacy, I would not recommend starting erythromycin at this point. She is on metoclopramide at a low dose, which can be continued for a short period of time. Clearly this is a difficult situation given that this is a motility disturbance that has poor results with medical therapy, but hopefully with better bowel function, limiting narcotic medicines, and improving small volume meals, she may do better. I do not believe there is any role for endoscopic evaluation at this time. [id number]/CPS #: [id number] MTDD
[2017-05-03] MEDS: Ondansetron INJ* 2 MG/ML VIAL IV PRN (00:36)
[2017-05-03] MEDS ORDERED: Lidocaine PATCH 5%* 1 PATCH TRANSDERM SCH (01:00)
[2017-05-03] MEDS: Albuterol/Ipratropium NEB.SOL* Albuterol 2.5 MG/Ipratropium 0.5 MG 3 ML INH SCH ×4 (02:13→20:25)
[2017-05-03 05:49] LABS: Hematocrit 28 % (35-47); Hemoglobin 9.5 g/dl (12.0-16.0); Mean Corpuscular HGB Conc 34 g/dl (31-36); Mean Corpuscular Hemoglobin 31 pg (27-31); Mean Corpuscular Volume 93 fL (80-97); Mean Platelet Volume 7 um3 (7.4-10.4); Red Blood Count 3.05 10^6/ul (4.0-5.4); Red Cell Distribution Width 16 % (10.5-15)
[2017-05-03 05:51] LABS: Add Diff/Slide Review? Slide Review Added; Comments Flag Yes
[2017-05-03 06:03] LABS: BUN/Creatinine Ratio 10.5 (8-20); Calcium 8.9 mg/dL (8.6-10.3); EGFR African American 64.2 (>60); EGFR Non-African American 49.9 (>60)
[2017-05-03 06:06] LABS: Potassium 2.5 mmol/L (3.5-5.0)
[2017-05-03] MEDS: Mometasone/Formoter 200/5 MDI INH SCH ×2 (07:17→20:26)
[2017-05-03] MEDS ORDERED: Potassium Chlor TAB* 20 MEQ TAB.ER PO ONE ×2 (07:22→17:00)
[2017-05-03 07:47] LABS: Eosinophils % 1 % (0-6); Immature Granulocytes 3 % (0-9); Myelocytes % 2 % (0-1); Neutrophil % 81 % (38-83)
[2017-05-03 07:48] LABS: Macrocytosis 1+
[2017-05-03] MEDS: Metoclopramide IV* 5 MG/ML 2 ML VIAL IV SCH ×3 (08:00→17:05)
[2017-05-03] MEDS: KCL 10 MEQ/50 ML IVPREMIX* 10 MEQ/50 ML BAG IV SCH ×3 (08:03→11:22)
[2017-05-03] MEDS: Furosemide TAB* 20 MG PO SCH (08:16)
[2017-05-03] MEDS: Aspirin Low Dose CHEW TAB* 81 MG PO SCH (08:16)
[2017-05-03] MEDS: amLODIPine TAB* 5 MG PO SCH (08:16)
[2017-05-03] MEDS: Pantoprazole IV* 40 MG IV SCH (08:17)
[2017-05-03] MEDS: lamoTRIgine TAB(*) 100 MG PO SCH ×2 (08:17→21:30)
[2017-05-03] MEDS: Senna TAB PO SCH ×2 (08:30→21:16)
[2017-05-03] MEDS: Polyethylene Glycol 3350* 17 GM PACKET PO SCH ×2 (08:30→21:16)
[2017-05-03] MEDS: Docusate CAP* 100 MG PO SCH ×2 (08:31→21:16)
[2017-05-03] MEDS: Losartan TAB* 25 MG PO SCH (09:51)
--- NOTE | 2017-05-03 11:36 | PN ---
Subjective Date of Service: 05/03/17 Interval History: Overnight events noted, patient with episode of emesis overnight. Patient seen this morning. Denies any problems with breathing, says she thinks she was up all night coughing 2 nights ago but cannot recall last night. Is able to tell me she is in the hospital which is an improvement. Nursing reports she had some nausea and ?dry heaves this AM but no emesis, did have two large watery BMs. Family History: Unchanged from Admission Social History: Unchanged from Admission Past Medical History: Unchanged from Admission Objective Active Medications: Acetaminophen (Tylenol Tab*) 650 mg PO Q4H PRN Albuterol (Ventolin 2.5 Mg/3 Ml Neb.María*) 2.5 mg INH Q2H PRN Albuterol/Ipratropium (Duoneb (Albuterol 2.5 Mg/Ipratropium 0.5 Mg)) 1 neb INH [id number] AWAKE MAY Amlodipine Besylate (Norvasc Tab*) 10 mg PO DAILY MAY Aspirin (Aspirin Low Dose Tab*) 81 mg PO DAILY MAY Docusate Sodium (Colace Cap*) 200 mg PO BID MAY Furosemide (Lasix Tab*) 20 mg PO DAILY MAY Hydralazine HCl (Apresoline Iv*) 10 mg IV SLOW PU Q4H PRN Piperacillin Sod/Tazobactam (Sod 3.375 gm/ Sodium Chloride) 100 mls @ 25 mls/ hr IVPB Q8H MAY Lamotrigine (Lamictal Tab(*)) 250 mg PO QAM MAY Lamotrigine (Lamictal Tab(*)) 500 mg PO BEDTIME MAY Lidocaine (Lidoderm 5% Patch*) 1 patch TRANSDERM .ON 0900 OFF AT 2100 MAY Losartan Potassium (Cozaar Tab*) 50 mg PO DAILY MAY Metoclopramide HCl (Reglan Iv*) 5 mg IV AC MAY Mometasone Furoate/Formoterol Fumar (Dulera 200/5 Mdi*) 2 puff INH BID MAY Ondansetron HCl (Zofran Inj*) 4 mg IV Q6H PRN Pantoprazole Sodium (Protonix Iv*) 40 mg IV DAILY MAY Pharmacy Profile Note (Lidocaine Patch Remove*) 1 note PATCH OFF 2100 MAY Pharmacy Profile Note (Lidocaine Patch Remove*) 1 note PATCH OFF 1300 ONE Phenytoin Sodium (Dilantin Cap(*)) 200 mg PO BEDTIME [facility] Polyethylene Glycol/Electrolytes (Miralax*) 17 gm PO BID MAY Senna (Senokot Tab*) 2 tab PO BID MAY Tramadol HCl (Ultram*) 50 mg PO DAILY@1700 [facility] Vital Signs 05/02/17 05/02/17 05/02/17 12:05 14:30 15:53 Temperature 97.8 F Pulse Rate 77 86 86 Respiratory 16 16 Rate Blood Pressure 149/56 167/67 (mmHg) O2 Sat by Pulse 92 97 100 Oximetry 05/03/17 05/03/17 05/03/17 00:00 01:03 05:02 Temperature 98.2 F 98.6 F Pulse Rate 78 75 Respiratory 16 18 Rate Blood Pressure 147/62 (mmHg) O2 Sat by Pulse 94 98 Oximetry Oxygen Devices in Use Now: Nasal Cannula - at 2 L Appearance: Elderly, F, laying in bed in NAD Eyes: No Scleral Icterus Ears/Nose/Mouth/Throat: Mucous Membranes Moist Neck: NL Appearance and Movements; NL JVP Respiratory: Symmetrical Chest Expansion and Respiratory Effort, - - Some scattered ronchi, do not appreciate any wheezing Cardiovascular: - - IRIR Abdominal: NL Sounds; No Tenderness; No Distention Lymphatic: No Cervical Adenopathy Extremities: - - Pedal edema B/L Skin: No Rash or Ulcers Neurological: - - Alert, oriented to self and place Result Diagrams: 05/03/17 05:21 05/03/17 05:21 Assess/Plan/Problems-Billing Assessment: 86 yo F with h/o cerebral palsy/COPD/seizures/HTN presented with resp distress likely 2/2 aspiration PNA and A. fib - Patient Problems (1) Acute hypoxemic respiratory failure Current Visit: Yes Comment: due to aspiration pneumonia, WBC normalized cont Zosyn suspect pt aspirated when vomiting prior to admission. Bedside swallow passed on 04/27/17. Continue reglan AC for possible gastroparesis (2) Aspiration pneumonia Current Visit: Yes Comment: tx as above (3) Nausea & vomiting Current Visit: Yes Comment: Appreciate GI assistance, felt to be more likely due to motility issues. Esophagogram (some reflux) and swallowing studies relatively unremarkable. Medications altered by Dr. Mendoza, small meals ordered , will monitor for now and consider possible erythromycin. (4) Atrial fibrillation Current Visit: Yes Comment: new, rate controlled. Heparin gtt stopped due to GI bleed on first day of hopsital stay cont telem (5) Hemoptysis Current Visit: Yes Comment: resolved at admissiom cont Prilosec BID F/u H&H-stable stop Fe sulfate supplementation(could be irritating)-for now It is possible that pt bled from Elisa Laams tear. Due to respiratory status , EGD would not be well tolerated. Will cont PPI and tx conservatively,f/u H& H. (6) COPD (chronic obstructive pulmonary disease) Current Visit: No Comment: with mild exacerbation S/P steroids cont nebs (7) Toxic metabolic encephalopathy Current Visit: Yes Comment: due to infection As per d/w son , pt has had problems with memory and disorientation in the past several weeks. (8) SBO (small bowel obstruction) Current Visit: No Comment: h/o SBO in the past pt stated that she passes flatus. XRays show no SBO CT at admission shows "redundant dilated colon" (9) Hypokalemia Current Visit: No Comment: replete PO and IV (10) Seizure disorder Current Visit: No Comment: Continue phenytoin and lamictal. (11) HTN (hypertension) Current Visit: No Comment: BPs elevated, will resume home Losartan in addition to Amlodipine. (12) DVT prophylaxis Current Visit: No Comment: SCD's ,anticoagulants contraindicated due to hematemesis noted at admission Status and Disposition: inpatient. pt is a resident of [facility]
[2017-05-03] MEDS ORDERED: Lidocaine Patch REMOVE* 1 NOTE MISC PATCH OFF ONE (13:00)
[2017-05-03] MEDS ORDERED: [UNRECOGNIZED DRUG - OTHER] ONE (16:59)
[2017-05-03] MEDS: traMADol TAB* 50 MG PO SCH (17:06)
[2017-05-03] MEDS: Phenytoin CAP(*) 100 MG CAP.ER PO SCH (21:31)
[2017-05-03] MEDS: hydrALAZINE IV* 20 MG/ML VIAL IV SLOW PU PRN (22:32)
[2017-05-03] MEDS: Lidocaine Patch REMOVE* 1 NOTE MISC PATCH OFF SCH (23:50)
[2017-05-04] MEDS: Albuterol/Ipratropium NEB.SOL* Albuterol 2.5 MG/Ipratropium 0.5 MG 3 ML INH SCH ×4 (01:03→19:39)
[2017-05-04 06:44] LABS: BUN/Creatinine Ratio 13.1 (8-20); Blood Urea Nitrogen 16 mg/dL (6-24); CO2 Carbon Dioxide 19 mmol/L (22-32); Calcium 8.3 mg/dL (8.6-10.3); Chloride 106 mmol/L (101-111); Glucose 115 mg/dL (70-100); Sodium 127 mmol/L (133-145)
[2017-05-04] MEDS ORDERED: NS 0.9% 500 ML BAG* 500 ML IV ONE (07:15)
[2017-05-04 08:33] LABS: Calcium 8.7 mg/dL (8.6-10.3); EGFR African American 52.5 (>60); EGFR Non-African American 40.8 (>60); Potassium 3.9 mmol/L (3.5-5.0)
[2017-05-04] MEDS: hydrALAZINE IV* 20 MG/ML VIAL IV SLOW PU PRN (08:48)
[2017-05-04] MEDS: Losartan TAB* 25 MG PO SCH (08:51)
[2017-05-04] MEDS: Pantoprazole IV* 40 MG IV SCH (08:52)
[2017-05-04] MEDS: Aspirin Low Dose CHEW TAB* 81 MG PO SCH (08:52)
[2017-05-04] MEDS: amLODIPine TAB* 5 MG PO SCH (08:54)
[2017-05-04] MEDS: Furosemide TAB* 20 MG PO SCH (08:54)
[2017-05-04] MEDS: Metoclopramide IV* 5 MG/ML 2 ML VIAL IV SCH ×3 (08:55→16:12)
[2017-05-04] MEDS: lamoTRIgine TAB(*) 100 MG PO SCH ×2 (08:57→20:02)
[2017-05-04] MEDS: Docusate CAP* 100 MG PO SCH ×2 (09:01→19:36)
[2017-05-04] MEDS: Polyethylene Glycol 3350* 17 GM PACKET PO SCH ×2 (09:02→19:35)
[2017-05-04] MEDS: Senna TAB PO SCH ×2 (09:02→19:35)
[2017-05-04] MEDS: Amoxicillin/Clavulanate TAB* 875 MG PO SCH ×2 (09:26→20:02)
[2017-05-04] MEDS: Mometasone/Formoter 200/5 MDI INH SCH ×2 (09:49→21:16)
[2017-05-04] MEDS ORDERED: hydrALAZINE IV* 20 MG/ML VIAL IV SLOW PU PRN (12:11)
--- NOTE | 2017-05-04 12:38 | PN ---
Subjective Date of Service: 05/04/17 Interval History: Patient seen this morning. Did well with lunch and dinner last night. Did not eat a lot of breakfast but no N/V. Denies SOB, fever or chills. Family History: Unchanged from Admission Social History: Unchanged from Admission Past Medical History: Unchanged from Admission Objective Active Medications: Acetaminophen (Tylenol Tab*) 650 mg PO Q4H PRN Albuterol (Ventolin 2.5 Mg/3 Ml Neb.María*) 2.5 mg INH Q2H PRN Albuterol/Ipratropium (Duoneb (Albuterol 2.5 Mg/Ipratropium 0.5 Mg)) 1 neb INH [id number] AWAKE MAY Amlodipine Besylate (Norvasc Tab*) 10 mg PO DAILY MAY Amoxicillin/Clavulanate Potassium (Augmentin Tab*) 875 mg PO BID MAY Aspirin (Aspirin Low Dose Tab*) 81 mg PO DAILY MAY Docusate Sodium (Colace Cap*) 200 mg PO BID MAY Furosemide (Lasix Tab*) 20 mg PO DAILY MAY Heparin Sodium (Porcine) (Heparin Flush Picc/Ml/Cvc(*)) 1 ml FLUSH 0600,1800 MAY Hydralazine HCl (Apresoline Iv*) 10 mg IV SLOW PU Q4H PRN Lamotrigine (Lamictal Tab(*)) 250 mg PO QAM MAY Lamotrigine (Lamictal Tab(*)) 500 mg PO BEDTIME MAY Lidocaine (Lidoderm 5% Patch*) 1 patch TRANSDERM .ON 0900 OFF AT 2100 [facility] Losartan Potassium (Cozaar Tab*) 50 mg PO DAILY MAY Metoclopramide HCl (Reglan Iv*) 5 mg IV AC MAY Mometasone Furoate/Formoterol Fumar (Dulera 200/5 Mdi*) 2 puff INH BID MAY Ondansetron HCl (Zofran Inj*) 4 mg IV Q6H PRN Pantoprazole Sodium (Protonix Iv*) 40 mg IV DAILY MAY Pharmacy Profile Note (Lidocaine Patch Remove*) 1 note PATCH OFF 2100 MAY Phenytoin Sodium (Dilantin Cap(*)) 200 mg PO BEDTIME MAY Polyethylene Glycol/Electrolytes (Miralax*) 17 gm PO BID MAY Senna (Senokot Tab*) 2 tab PO BID MAY Tramadol HCl (Ultram*) 50 mg PO DAILY@1700 MAY Vital Signs 05/03/17 05/03/17 05/03/17 13:20 15:09 17:06 Temperature 97.3 F Pulse Rate 78 68 Respiratory 16 24 16 Rate Blood Pressure 148/49 (mmHg) O2 Sat by Pulse 98 91 Oximetry 05/04/17 05/04/17 05/04/17 04:36 07:58 08:15 Temperature 99.7 F 99.1 F Pulse Rate 101 79 Respiratory 16 24 24 Rate Blood Pressure 138/57 173/57 (mmHg) O2 Sat by Pulse 92 95 Oximetry 05/04/17 05/04/17 09:24 11:54 Temperature 98.4 F Pulse Rate 76 74 Respiratory 16 22 Rate Blood Pressure 142/36 (mmHg) O2 Sat by Pulse 98 95 Oximetry Oxygen Devices in Use Now: Nasal Cannula - at 2 L Appearance: Elderly, F, laying in chair in NAD Eyes: No Scleral Icterus Ears/Nose/Mouth/Throat: - - Dry MM Neck: NL Appearance and Movements; NL JVP Respiratory: Symmetrical Chest Expansion and Respiratory Effort, - - Some scattered coarse BS Cardiovascular: - - IRIR, normal rate Abdominal: NL Sounds; No Tenderness; No Distention Lymphatic: No Cervical Adenopathy Extremities: - - B/L pedal edema Skin: No Rash or Ulcers Neurological: - - Alert, oriented to self and place Result Diagrams: 05/03/17 05:21 05/04/17 08:05 Microbiology and Other Data: Microbiology 04/27/17 06:50 Stool Occult Blood (JENNIFER) - Final Stool 04/27/17 01:30 Gastric Occult Blood - Final Gastric Fluid Assess/Plan/Problems-Billing Assessment: 86 yo F with h/o cerebral palsy/COPD/seizures/HTN presented with resp distress likely 2/2 aspiration PNA and A. fib - Patient Problems (1) Acute hypoxemic respiratory failure Current Visit: Yes Comment: due to aspiration pneumonia, WBC normalized Transition to PO Augmentin suspect pt aspirated when vomiting prior to admission. Bedside swallow passed on 04/27/17. Continue reglan AC for possible gastroparesis (2) Aspiration pneumonia Current Visit: Yes Comment: tx as above (3) Nausea & vomiting Current Visit: Yes Comment: Appreciate GI assistance, felt to be more likely due to motility issues. Esophagogram (some reflux) and swallowing studies relatively unremarkable. Medications altered by Dr. Mendoza, small meals ordered , seems to be doing better, if N/V recurs consider possible erythromycin. (4) Atrial fibrillation Current Visit: Yes Comment: new, rate controlled. Heparin gtt stopped due to GI bleed on first day of hopsital stay cont telem (5) Hemoptysis Current Visit: Yes Comment: resolved at admissiom F/u H&H-stable stop Fe sulfate supplementation(could be irritating)-for now It is possible that pt bled from Elisa Lamas tear. Will cont PPI and tx conservatively,f/u H&H. (6) COPD (chronic obstructive pulmonary disease) Current Visit: No Comment: with mild exacerbation S/P steroids cont nebs (7) SBO (small bowel obstruction) Current Visit: No Comment: h/o SBO in the past pt stated that she passes flatus. XRays show no SBO CT at admission shows "redundant dilated colon" (8) Hypokalemia Current Visit: No Comment: resolved (9) Seizure disorder Current Visit: No Comment: Continue phenytoin and lamictal. (10) HTN (hypertension) Current Visit: No Comment: BPs remain elevated, will start Coreg 6.25 mg BID, continue Losartan and Amlodipine. (11) TREVOR (acute kidney injury) Current Visit: Yes Comment: May be 2/2 dehydration or resuming ARB. NS 500 cc x 1. Recheck in AM (12) DVT prophylaxis Current Visit: No Comment: SCD's ,anticoagulants contraindicated due to hematemesis noted at admission Status and Disposition: inpatient. pt is a resident of [facility]
[2017-05-04] MEDS: Carvedilol TAB* 6.25 MG PO SCH ×2 (13:58→20:02)
[2017-05-04] MEDS: traMADol TAB* 50 MG PO SCH (16:11)
[2017-05-04] MEDS: Lidocaine Patch REMOVE* 1 NOTE MISC PATCH OFF SCH (19:36)
[2017-05-04] MEDS: Phenytoin CAP(*) 100 MG CAP.ER PO SCH (20:03)
[2017-05-05] MEDS: Albuterol/Ipratropium NEB.SOL* Albuterol 2.5 MG/Ipratropium 0.5 MG 3 ML INH SCH ×4 (01:53→19:46)
[2017-05-05 05:46] LABS: BUN/Creatinine Ratio 14.2 (8-20); Calcium 8.5 mg/dL (8.6-10.3); EGFR Non-African American 45.9 (>60); Potassium 3.4 mmol/L (3.5-5.0)
[2017-05-05] MEDS: Mometasone/Formoter 200/5 MDI INH SCH ×2 (07:15→19:46)
[2017-05-05] MEDS: Metoclopramide IV* 5 MG/ML 2 ML VIAL IV SCH ×3 (07:45→16:56)
--- NOTE | 2017-05-05 09:32 | PN ---
Subjective Date of Service: 05/05/17 Interval History: Notified this AM that patient had significant bleeding from IV site on her hand , ?dislodged. Also some gurgling/rattling in throat that cleared with some suction. On my exam the wound was covered and dry, not bleeding any further. Patient was sleeping soundly but when I woke her she was very agitated and began trying to hit me and was cursing. She said she's "bleeding to " from her hand and "it 's the only hand I've got". Refused exam. Did not note any breathing issues, appears comfortable on room air. Family History: Unchanged from Admission Social History: Unchanged from Admission Past Medical History: Unchanged from Admission Objective Active Medications: Acetaminophen (Tylenol Tab*) 650 mg PO Q4H PRN PRN Reason: FEVER/PAIN Albuterol (Ventolin 2.5 Mg/3 Ml Neb.María*) 2.5 mg INH Q2H PRN PRN Reason: SOB/WHEEZING Last Admin: 04/28/17 21:25 Dose: 2.5 mg Albuterol/Ipratropium (Duoneb (Albuterol 2.5 Mg/Ipratropium 0.5 Mg)) 1 neb INH [id number] AWAKE [facility] Last Admin: 05/05/17 07:15 Dose: Not Given Amlodipine Besylate (Norvasc Tab*) 10 mg PO DAILY [facility] Last Admin: 05/04/17 08:54 Dose: 10 mg Amoxicillin/Clavulanate Potassium (Augmentin Tab*) 875 mg PO BID [facility] Last Admin: 05/04/17 20:02 Dose: 875 mg Aspirin (Aspirin Low Dose Tab*) 81 mg PO DAILY [facility] Last Admin: 05/04/17 08:52 Dose: 81 mg Carvedilol (Coreg Tab*) 6.25 mg PO BID [facility] Last Admin: 05/04/17 20:02 Dose: 6.25 mg Docusate Sodium (Colace Cap*) 200 mg PO BID [facility] Last Admin: 05/04/17 19:36 Dose: Not Given Furosemide (Lasix Tab*) 20 mg PO DAILY [facility] Last Admin: 05/04/17 08:54 Dose: 20 mg Heparin Sodium (Porcine) (Heparin Flush Picc/Ml/Cvc(*)) 1 ml FLUSH 0600,1800 [facility] PRN Reason: Protocol Last Admin: 05/05/17 05:20 Dose: 1 ml Hydralazine HCl (Apresoline Iv*) 10 mg IV SLOW PU Q4H PRN PRN Reason: BLOOD PRESSURE Lamotrigine (Lamictal Tab(*)) 250 mg PO QAM [facility] Last Admin: 05/04/17 08:57 Dose: 250 mg Lamotrigine (Lamictal Tab(*)) 500 mg PO BEDTIME [facility] Last Admin: 05/04/17 20:02 Dose: 500 mg Lidocaine (Lidoderm 5% Patch*) 1 patch TRANSDERM .ON 0900 OFF AT 2100 [facility] Losartan Potassium (Cozaar Tab*) 50 mg PO DAILY [facility] Last Admin: 05/04/17 08:51 Dose: 50 mg Metoclopramide HCl (Reglan Iv*) 5 mg IV AC [facility] Last Admin: 05/05/17 07:45 Dose: 5 mg Mometasone Furoate/Formoterol Fumar (Dulera 200/5 Mdi*) 2 puff INH BID [facility] Last Admin: 05/05/17 07:15 Dose: Not Given Ondansetron HCl (Zofran Inj*) 4 mg IV Q6H PRN PRN Reason: NAUSEA Last Admin: 05/03/17 00:36 Dose: 4 mg Pantoprazole Sodium (Protonix Iv*) 40 mg IV DAILY [facility] Last Admin: 05/04/17 08:52 Dose: 40 mg Pharmacy Profile Note (Lidocaine Patch Remove*) 1 note PATCH OFF 2100 [facility] Last Admin: 05/04/17 19:36 Dose: Not Given Phenytoin Sodium (Dilantin Cap(*)) 200 mg PO BEDTIME [facility] Last Admin: 05/04/17 20:03 Dose: 200 mg Polyethylene Glycol/Electrolytes (Miralax*) 17 gm PO BID [facility] Last Admin: 05/04/17 19:35 Dose: Not Given Senna (Senokot Tab*) 2 tab PO BID [facility] Last Admin: 05/04/17 19:35 Dose: Not Given Tramadol HCl (Ultram*) 50 mg PO DAILY@1700 [facility] Last Admin: 05/04/17 16:11 Dose: 50 mg Vital Signs 05/04/17 05/04/17 05/04/17 11:54 16:05 16:11 Temperature 98.4 F 97.7 F Pulse Rate 74 88 Respiratory 22 20 20 Rate Blood Pressure 142/36 132/64 (mmHg) O2 Sat by Pulse 95 98 Oximetry 05/04/17 05/04/17 05/04/17 17:57 17:59 18:11 Temperature 97.6 F 97.6 F Pulse Rate 64 64 Respiratory 16 16 16 Rate Blood Pressure 154/49 154/49 (mmHg) O2 Sat by Pulse 100 100 Oximetry 05/04/17 05/04/17 05/04/17 19:45 20:00 23:34 Temperature 97.6 F Pulse Rate 64 62 Respiratory 20 20 22 Rate Blood Pressure 168/49 (mmHg) O2 Sat by Pulse 98 97 Oximetry 05/05/17 05/05/17 05/05/17 01:58 03:53 07:29 Temperature 98.6 F Pulse Rate 70 53 Respiratory 18 16 16 Rate Blood Pressure 140/45 (mmHg) O2 Sat by Pulse 95 94 Oximetry 05/05/17 05/05/17 07:56 08:00 Temperature Pulse Rate 90 Respiratory 16 18 Rate Blood Pressure 136/100 (mmHg) O2 Sat by Pulse Oximetry Oxygen Devices in Use Now: None Appearance: Elderly, F, laying in bed in NAD. Refused examination Ears/Nose/Mouth/Throat: - - Dry MM Extremities: - - R hand with dressing in place, some ecchymoses, no bleeding Neurological: - - Alert, agitated Result Diagrams: 05/03/17 05:21 05/05/17 05:16 Microbiology and Other Data: Assess/Plan/Problems-Billing Assessment: 86 yo F with h/o cerebral palsy/COPD/seizures/HTN presented with resp distress likely 2/2 aspiration PNA and A. fib - Patient Problems (1) Bleeding Current Visit: Yes Comment: from IV site. Resolved after pressure dressing placed however it seems like it was going on for some time with some significant blood loss. Will check CBC. (2) Acute hypoxemic respiratory failure Current Visit: Yes Comment: due to aspiration pneumonia, WBC normalized Continue PO Augmentin suspect pt aspirated when vomiting prior to admission. Bedside swallow passed on 04/27/17. Continue reglan AC for possible gastroparesis (3) Aspiration pneumonia Current Visit: Yes Comment: tx as above (4) Nausea & vomiting Current Visit: Yes Comment: Appreciate GI assistance, felt to be more likely due to motility issues. Esophagogram (some reflux) and swallowing studies relatively unremarkable. Medications altered by Dr. Mendoza, small meals ordered , seems to be doing better no issues since 05/03, if N/V recurs consider possible erythromycin. (5) Atrial fibrillation Current Visit: Yes Comment: new, rate controlled for days, stopped tele. Beta- zenon started. Heparin gtt stopped due to GI bleed on first day of hopsital stay (6) Hematemesis Current Visit: Yes Comment: resolved at admissiom stop Fe sulfate supplementation(could be irritating)-for now It is possible that pt bled from Elisa Lamas tear. Will cont PPI and tx conservatively (7) COPD (chronic obstructive pulmonary disease) Current Visit: No Comment: with mild exacerbation S/P steroids cont nebs (8) SBO (small bowel obstruction) Current Visit: No Comment: h/o SBO in the past pt stated that she passes flatus. XRays show no SBO CT at admission shows "redundant dilated colon" (9) Hypokalemia Current Visit: No Comment: resolved (10) Seizure disorder Current Visit: No Comment: Continue phenytoin and lamictal. (11) HTN (hypertension) Current Visit: No Comment: BPs improved aside from agitation this AM, continue Coreg 6.25 mg BID, continue Losartan and Amlodipine. (12) TREVOR (acute kidney injury) Current Visit: Yes Comment: May be 2/2 dehydration or resuming ARB. Improved. (13) DVT prophylaxis Current Visit: No Comment: SCD's ,anticoagulants contraindicated due to hematemesis noted at admission Status and Disposition: Planned discharge on 05/05 however with new bleed and aggressive behavior may need to delay
[2017-05-05] MEDS: amLODIPine TAB* 5 MG PO SCH (10:48)
[2017-05-05] MEDS: Docusate CAP* 100 MG PO SCH (10:48)
[2017-05-05] MEDS: lamoTRIgine TAB(*) 100 MG PO SCH (10:48)
[2017-05-05] MEDS: Pantoprazole IV* 40 MG IV SCH (10:48)
[2017-05-05] MEDS: Losartan TAB* 25 MG PO SCH (10:48)
[2017-05-05] MEDS: Furosemide TAB* 20 MG PO SCH (10:48)
[2017-05-05] MEDS: Amoxicillin/Clavulanate TAB* 875 MG PO SCH (10:48)
[2017-05-05] MEDS: Carvedilol TAB* 6.25 MG PO SCH (10:48)
[2017-05-05] MEDS: Aspirin Low Dose CHEW TAB* 81 MG PO SCH (10:48)
[2017-05-05] MEDS: Senna TAB PO SCH (10:49)
[2017-05-05] MEDS: Polyethylene Glycol 3350* 17 GM PACKET PO SCH (10:49)
[2017-05-05 11:11] LABS: Hematocrit 28 % (35-47); Mean Corpuscular HGB Conc 33 g/dl (31-36); Mean Corpuscular Hemoglobin 31 pg (27-31); Mean Corpuscular Volume 94 fL (80-97); Mean Platelet Volume 7 um3 (7.4-10.4); Red Blood Count 2.95 10^6/ul (4.0-5.4); Red Cell Distribution Width 16 % (10.5-15); White Blood Count 9.9 10^3/ul (3.5-10.8)
[2017-05-05 11:13] LABS: Add Diff/Slide Review? Slide Review Added; Comments Flag Yes
[2017-05-05] MEDS: traMADol TAB* 50 MG PO SCH (17:05)
[2017-05-05] MEDS ORDERED: Ziprasidone IM INJ* 20 MG/ML VIAL IM ONE (22:16)
[2017-05-06] MEDS: Albuterol/Ipratropium NEB.SOL* Albuterol 2.5 MG/Ipratropium 0.5 MG 3 ML INH SCH ×2 (00:12→07:58)
[2017-05-06] MEDS: Carvedilol TAB* 6.25 MG PO SCH ×2 (01:42→09:46)
[2017-05-06] MEDS: Amoxicillin/Clavulanate TAB* 875 MG PO SCH ×2 (01:42→09:46)
[2017-05-06] MEDS: Docusate CAP* 100 MG PO SCH ×2 (01:43→09:46)
[2017-05-06] MEDS: lamoTRIgine TAB(*) 100 MG PO SCH ×2 (01:46→09:46)
[2017-05-06] MEDS: Phenytoin CAP(*) 100 MG CAP.ER PO SCH (01:47)
[2017-05-06] MEDS: Polyethylene Glycol 3350* 17 GM PACKET PO SCH ×2 (01:47→09:46)
[2017-05-06] MEDS: Senna TAB PO SCH ×2 (01:47→09:46)
[2017-05-06] MEDS: Lidocaine Patch REMOVE* 1 NOTE MISC PATCH OFF SCH (01:47)
[2017-05-06] MEDS: Mometasone/Formoter 200/5 MDI INH SCH (07:58)
[2017-05-06 08:28] VITALS: BP 193/71
[2017-05-06] MEDS: Metoclopramide IV* 5 MG/ML 2 ML VIAL IV SCH ×2 (09:45→13:04)
[2017-05-06] MEDS: amLODIPine TAB* 5 MG PO SCH (09:45)
[2017-05-06] MEDS: Losartan TAB* 25 MG PO SCH (09:46)
[2017-05-06] MEDS: Pantoprazole IV* 40 MG IV SCH (09:46)
[2017-05-06] MEDS: Furosemide TAB* 20 MG PO SCH (09:46)
[2017-05-06] MEDS: Aspirin Low Dose CHEW TAB* 81 MG PO SCH (09:46)
--- NOTE | 2017-05-06 11:05 | DCNOTE ---
Subjective Date of Service: 05/06/17 Interval History: No c/o, except asks for ice water. Family History: Unchanged from Admission Social History: Unchanged from Admission Past Medical History: Unchanged from Admission Objective Active Medications: Acetaminophen (Tylenol Tab*) 650 mg PO Q4H PRN PRN Reason: FEVER/PAIN Albuterol (Ventolin 2.5 Mg/3 Ml Neb.María*) 2.5 mg INH Q2H PRN PRN Reason: SOB/WHEEZING Last Admin: 04/28/17 21:25 Dose: 2.5 mg Amlodipine Besylate (Norvasc Tab*) 10 mg PO DAILY [facility] Last Admin: 05/06/17 09:45 Dose: Not Given Amoxicillin/Clavulanate Potassium (Augmentin Tab*) 875 mg PO BID [facility] Last Admin: 05/06/17 09:46 Dose: Not Given Aspirin (Aspirin Low Dose Tab*) 81 mg PO DAILY [facility] Last Admin: 05/06/17 09:46 Dose: Not Given Carvedilol (Coreg Tab*) 6.25 mg PO BID [facility] Last Admin: 05/06/17 09:46 Dose: Not Given Docusate Sodium (Colace Cap*) 200 mg PO BID [facility] Last Admin: 05/06/17 09:46 Dose: Not Given Furosemide (Lasix Tab*) 20 mg PO DAILY [facility] Last Admin: 05/06/17 09:46 Dose: Not Given Lamotrigine (Lamictal Tab(*)) 250 mg PO QAM [facility] Last Admin: 05/06/17 09:46 Dose: Not Given Lamotrigine (Lamictal Tab(*)) 500 mg PO BEDTIME [facility] Last Admin: 05/06/17 01:46 Dose: Not Given Lidocaine (Lidoderm 5% Patch*) 1 patch TRANSDERM .ON 0900 OFF AT 2100 [facility] Losartan Potassium (Cozaar Tab*) 50 mg PO DAILY [facility] Last Admin: 05/06/17 09:46 Dose: Not Given Metoclopramide HCl (Reglan Iv*) 5 mg IV AC [facility] Last Admin: 05/06/17 09:45 Dose: Not Given Mometasone Furoate/Formoterol Fumar (Dulera 200/5 Mdi*) 2 puff INH BID [facility] Last Admin: 05/06/17 07:58 Dose: Not Given Omeprazole (Prilosec Cap*) 20 mg PO 0600 [facility] Pharmacy Profile Note (Lidocaine Patch Remove*) 1 note PATCH OFF 2100 [facility] Last Admin: 05/06/17 01:47 Dose: Not Given Phenytoin Sodium (Dilantin Cap(*)) 200 mg PO BEDTIME [facility] Last Admin: 05/06/17 01:47 Dose: Not Given Polyethylene Glycol/Electrolytes (Miralax*) 17 gm PO BID [facility] Last Admin: 05/06/17 09:46 Dose: Not Given Senna (Senokot Tab*) 2 tab PO BID [facility] Last Admin: 05/06/17 09:46 Dose: Not Given Tramadol HCl (Ultram*) 50 mg PO DAILY@1700 [facility] Last Admin: 05/05/17 17:05 Dose: Not Given Vital Signs 05/05/17 05/05/17 05/05/17 11:40 15:14 17:04 Temperature 98.8 F Pulse Rate 72 90 87 Respiratory 16 Rate Blood Pressure 149/59 138/108 152/70 (mmHg) O2 Sat by Pulse 93 Oximetry 05/05/17 05/05/17 05/05/17 17:05 20:00 23:41 Temperature 98.8 F Pulse Rate 81 Respiratory 20 28 34 Rate Blood Pressure 164/47 (mmHg) O2 Sat by Pulse 96 Oximetry 05/06/17 05/06/17 05/06/17 04:02 07:46 08:00 Temperature 99.4 F 98.4 F Pulse Rate 88 109 Respiratory 28 20 22 Rate Blood Pressure 174/74 193/71 (mmHg) O2 Sat by Pulse 97 Oximetry Oxygen Devices in Use Now: None Appearance: Alert partly up in bed. Hostile response to every statement or question I made. She was physically aggressive when I attempted to examine her. Neurological: - - Speech clear and fluent. Disoriented. Poor memory. No tremor. Result Diagrams: 05/05/17 10:40 05/05/17 05:16 Microbiology and Other Data: Assess/Plan/Problems-Billing Assessment: 86 yo F with h/o cerebral palsy/COPD/seizures/HTN presented with resp distress likely 2/2 aspiration PNA and A. fib - Patient Problems (1) Aspiration pneumonia Current Visit: Yes Status: Acute Code(s): J69.0 - PNEUMONITIS DUE TO INHALATION OF FOOD AND VOMIT SNOMED Code(s): 664807765 Comment: Amox/clav as outpt for 7 days. (2) Atrial fibrillation Current Visit: Yes Status: Acute Code(s): I48.91 - UNSPECIFIED ATRIAL FIBRILLATION SNOMED Code(s): 73015571 Comment: new, rate controlled for days, stopped tele. Beta-zenon started. Heparin gtt stopped due to GI bleed on first day of hopsital stay Continue carvedilol as oupt. (3) Hematemesis Current Visit: Yes Status: Acute Code(s): K92.0 - HEMATEMESIS SNOMED Code( s): 4030886 Comment: resolved at admissiom stop Fe sulfate supplementation(could be irritating)-for now It is possible that pt bled from Elisa Lamas tear. Dr. Mendoza felt EGD was not needed. (4) Seizure disorder Current Visit: No Status: Chronic Code(s): G40.909 - EPILEPSY, UNSP, NOT INTRACTABLE, WITHOUT STATUS EPILEPTICUS SNOMED Code(s): 719663703 Comment: Continue phenytoin and lamictal. (5) Depression Current Visit: No Status: Chronic Code(s): F32.9 - MAJOR DEPRESSIVE DISORDER , SINGLE EPISODE, UNSPECIFIED SNOMED Code(s): 48866834 Comment: - noted and stable Status and Disposition: Discharge to [facility] now.
--- NOTE | 2017-05-06 11:50 | TRS ---
DATE OF ADMISSION: 04/26/2017. DATE OF TRANSFER: 05/06/2017. HISTORY: This 86-year-old woman present with cough and malaise. She had some hematemesis in the hospital. Dr. Mendoza saw her and felt an EGD was not indicated. She had atrial fibrillation. Because of the hematemesis, she was not given anticoagulation. She had an echocardiogram on April 27 that showed an ejection fraction of 55 to 60 percent. The left atrium was moderately dilated as was the right atrium. Her atrial fibrillation rate was controlled with Carvedilol. Her emesis resolved. She never had a fever here in the hospital. She remained somewhat combative and disoriented. I hope she will do better with familiar staff around her. FINAL DIAGNOSES: 1. Aspiration pneumonia. 2. Nausea and vomiting. 3. Atrial fibrillation. 4. COPD. 5. History of small bowel obstruction, as well as pseudoobstruction. 6. Seizure disorder. 7. Acute kidney injury. TRANSFER MEDICATIONS: 1. Amoxicillin Clavulanate 875 mg b.i.d. for 7 days. 2. Carvedilol 6.25 mg b.i.d. 3. Acetaminophen 650 mg every 4 hours prn. 4. Diazepam 5 mg rectally as needed. 5. Senna two b.i.d. 6. Lamotrigine 250 mg in the morning and 500 mg at bedtime. 7. Aspirin 81 mg daily. 8. Furosemide 20 mg daily. 9. Phenytoin 200 mg at bedtime. 10. Ferrous sulfate 325 mg daily. 11. Ascorbic acid 500 mg daily. 12. Losartan 50 mg daily. 13. Albuterol Ipratropium by nebulizer every 6 hours prn. 14. Albuterol inhaler every 2 hours prn. 15. Amlodipine 5 mg daily. 16. Tramadol 50 mg daily. 17. Polyethylene glycol 17 gm once or twice daily. [id number]/[facility] #: [id number] [facility]
[2017-05-07] MEDS ORDERED: Omeprazole CAP* 20 MG PO SCH (06:00)
== END 2017-05-06 13:40 | DRG 177 ==
LOC: ED 16:38 → MEDTELE 20:02 → MED 05-04 17:47
PROVIDERS: ADMIT Hospitalist; ATTEND Internal Medicine
PROC: 0T9B70Z Drainage of Bladder with Drainage Device, Via Natural or Artificial Opening (ICD-10-PCS; principal; 2017-04-27)
DX: J69.0 Pneumonitis due to inhalation of food and vomit (principal); J96.01 Acute respiratory failure with hypoxia; G92 Toxic encephalopathy; N17.9 Acute kidney failure, unspecified; K56.0 Paralytic ileus; I27.2 Other secondary pulmonary hypertension; I48.91 Unspecified atrial fibrillation; G80.9 Cerebral palsy, unspecified; J44.1 Chronic obstructive pulmonary disease with (acute) exacerbation; I10 Essential (primary) hypertension; R04.2 Hemoptysis; T80.1XXA Vascular complications following infusion, transfusion and therapeutic injection, initial encounter; E87.70 Fluid overload, unspecified; G40.909 Epilepsy, unspecified, not intractable, without status epilepticus; K31.84 Gastroparesis; F32.9 Major depressive disorder, single episode, unspecified; E87.6 Hypokalemia; K21.9 Gastro-esophageal reflux disease without esophagitis; M19.90 Unspecified osteoarthritis, unspecified site; Z96.641 Presence of right artificial hip joint; Z66 Do not resuscitate; R74.8 Abnormal levels of other serum enzymes; R79.1 Abnormal coagulation profile; B96.4 Proteus (mirabilis) (morganii) as the cause of diseases classified elsewhere; Y82.8 Other medical devices associated with adverse incidents; Y92.239 Unspecified place in hospital as the place of occurrence of the external cause; K59.09 Other constipation; R41.0 Disorientation, unspecified; R11.2 Nausea with vomiting, unspecified; Z86.73 Personal history of transient ischemic attack (TIA), and cerebral infarction without residual deficits; Z88.1 Allergy status to other antibiotic agents; Z88.5 Allergy status to narcotic agent; Z88.8 Allergy status to other drugs, medicaments and biological substances; Z91.041 Radiographic dye allergy status; Z82.49 Family history of ischemic heart disease and other diseases of the circulatory system; Z79.82 Long term (current) use of aspirin
CPT/HCPCS: 36415; 71010; 74020; 74176; 74220; 74230; 80048; 80053; 80162; 81003; 81015; 82270; 82271; 83605; 83735; 84484; 85014; 85018; 85025; 85610; 85730; 87040; 87070; 87077; 87086; 87184; 87186; 87205; 87899; 93005; 93306; 94640; 94760; A9270-GY; G8996-GN-CK; G8997-GN-CK; G8998-GN-CK; J0360; J0456; J1580; J1644; J1940; J2405; J2543; J2920; J3480; J7512